=== PATIENT | male | born 1965 | race Caucasian/White ===

== ENCOUNTER 2017-04-19 21:46 | Emergency (ER) | payer MEDICARE ==
[~2017-04-19] VITALS: Ht 182.9 cm; Wt 70.0 kg
[2017-04-19 22:02] VITALS: BP 109/63; PULSE 74; RESP 16; TEMP 98.2; O2SAT 99
[2017-04-20] MEDS ORDERED: SODIUM CHLORIDE 0.9% FLUSH 10 ML FLUSH IV FLUSH PRN (00:15)
[2017-04-20 00:34] VITALS: O2SAT 100
[2017-04-20 00:35] VITALS: BP 160/65; PULSE 60; RESP 18; O2SAT 100
[2017-04-20 00:37] LABS: AUTOMATED NEUTROPHIL # 6.6 TH/MM3 (1.8-7.7); BASOPHIL # 0.1 TH/MM3 (0-0.2); BASOPHIL % 0.8 % (0.0-2.0); EOSINOPHIL # 0.3 TH/MM3 (0-0.4); EOSINOPHIL % 3.3 % (0.0-4.0); HEMATOCRIT 40.7 % (39.0-51.0); HEMOGLOBIN 14.6 GM/DL (13.0-17.0); LYMPH % 18.6 % (9.0-44.0); LYMPHOCYTE # 1.7 TH/MM3 (1.0-4.8); MEAN CELL VOLUME 89.1 FL (80.0-100.0); MEAN CORPUSCULAR HGB CONC 35.9 % (32.0-36.0); MEAN PLATELET VOLUME 8.1 FL (7.0-11.0); MONO % 4.8 % (0.0-8.0); MONOCYTE # 0.4 TH/MM3 (0-0.9); NEUT % 72.5 % (16.0-70.0); PLATELET COUNT 257 TH/MM3 (150-450); RED BLOOD COUNT 4.57 MIL/MM3 (4.50-5.90); RED CELL DISTRIBUTION WIDTH 13.1 % (11.6-17.2); WHITE BLOOD COUNT 9.1 TH/MM3 (4.0-11.0)
--- NOTE | 2017-04-20 00:39 | RADRPT ---
EXAM DATE/TIME: 04/20/2017 00:25 [facility] COMPARISON: No previous studies available for comparison. INDICATIONS : Short of breath. MEDICAL HISTORY : None. SURGICAL HISTORY : None. ENCOUNTER: Initial ACUITY: 1 day PAIN SCORE: 0/10 LOCATION: Bilateral chest FINDINGS: Portable AP views of the chest demonstrate a normal-sized cardiac silhouette. No pleural effusion, ai rspace consolidation, or pneumothorax is identified. There is asymmetric pleural-parenchymal opacity at the lung apices, right greater than left. The bones and soft tissues demonstrate no acute finding. CONCLUSION: No acute cardiopulmonary abnormality is identified. Mild asymmetric pleural parenchymal opacities yadira g apices most likely represents asymmetric scar. Suggest correlating with any prior imaging studies t o confirm stability. Kulwinder Ram MD on April 20, 2017 at 0:36 Board Certified Radiologist. This report was verified electronically.
[2017-04-20 00:40] LABS: AMORPHOUS SEDIMENT, URINE RARE; BILIRUBIN, URINE NEG (NEG); BLOOD, URINE NEG (NEG); CALCIUM OXALATE CRYSTALS,URINE MANY /hpf; GLUCOSE,URINE NEG (NEG); KETONE, URINE NEG (NEG); MUCUS URINE FEW /lpf (OCC); NITRITE,URINE NEG (NEG); URINE COLOR YELLOW (YELLW/STRAW); URINE LEUKOCYTE ESTERASE TRACE (NEG)
[2017-04-20 00:53] LABS: ALBUMIN 3.6 GM/DL (3.4-5.0); ALT (GPT) 13 U/L (12-78); AST (GOT) 8 U/L (15-37); BICARBONATE 32.9 MEQ/L (21.0-32.0); BLOOD UREA NITROGEN 11 MG/DL (7-18); CALCIUM 8.4 MG/DL (8.5-10.1); CHLORIDE 106 MEQ/L (98-107); CREATININE 0.96 MG/DL (0.60-1.30); GLOMERULAR FILTRATION RATE 82 ML/MIN (>89); GLUCOSE,RANDOM 107 MG/DL (74-106); SODIUM (NA) 144 MEQ/L (136-145)
[2017-04-20 01:03] LABS: ACETAMINOPHEN LESS THAN 2.0 MCG/ML (10.0-30.0); ALKALINE PHOSPHATASE 112 U/L (45-117); TOTAL BILIRUBIN ADULT 0.2 MG/DL (0.2-1.0); TOTAL PROTEIN 6.5 GM/DL (6.4-8.2); TROPONIN I LESS THAN 0.02 NG/ML (0.02-0.05)
--- NOTE | 2017-04-20 05:11 | RADRPT ---
EXAM DATE/TIME: 04/20/2017 04:57 [facility] COMPARISON: No previous studies available for comparison. INDICATIONS : Altered mental status. RADIATION DOSE: 56.35 CTDIvol (mGy) MEDICAL HISTORY : Alzheimer's Multiple sclerosis. SURGICAL HISTORY : None. ENCOUNTER: Initial ACUITY: 1 day PAIN SCALE: 0/10 LOCATION: cranial TECHNIQUE: Multiple contiguous axial images were obtained of the head. Using automated exposure control and adj ustment of the mA and/or kV according to patient size, radiation dose was kept as low as reasonably a chievable to obtain optimal diagnostic quality images. DICOM format image data is available electro nically for review and comparison. FINDINGS: CEREBRUM: The ventricles are normal. No evidence of midline shift, mass lesion, hemorrhage or acute infarction . No extra-axial fluid collections are seen. POSTERIOR FOSSA: The cerebellum and brainstem are intact. The 4th ventricle is midline. The cerebellopontine angle i s unremarkable. EXTRACRANIAL: Visualized sinuses are clear. SKULL: The calvaria is intact. No evidence of skull fracture. CONCLUSION: No acute intracranial abnormality is identified. Kulwinder Ram MD on April 20, 2017 at 5:09 Board Certified Radiologist. This report was verified electronically.
[2017-04-20 06:11] VITALS: BP 157/62; PULSE 87; RESP 18; O2SAT 100
--- NOTE | 2017-04-20 07:16 | PD ---
HPI . complaint Chief Complaint: Complaint Time Seen by Provider: 00:08 Travel History International Travel<30 days: No Contact w/Intl Traveler<30days: No Traveled to known affect area: No History of Present Illness HPI 51-year-old male brought in by ambulance, unclear who called the ambulance, patient is unclear why he is here. Patient states he was brought in from his prior residence, however ambulance run sheet notes [facility]. Patient has complaint of dark urine. Patient cannot give his own history, where he is from, or whom he lives with. [facility] Past Medical History Narrative Medical Past medical history reviewed. Possibility of Alzheimer's disease Alzheimer's Disease: Yes (unconfirmed, but family told EMS about this DX) Diminished Hearing: No Musculoskeletal: Yes (MS) Tetanus Vaccination: < 5 Years Influenza Vaccination: No Past Surgical History Surgical History: No Previous Surgery Social History Alcohol Use: No Tobacco Use: Yes Substance Use: No Allergies-Medications (Allergen,Severity, Reaction): Coded Allergies: No Allergy Information Available (Unverified , 04/19/17) pt states not allergic to any medication but due to cognition and no family at bedside unclear if pt knows if he may have an allergy at this time. Reported Meds & Prescriptions Reported Meds & Active Scripts Active Active Prescriptions or Reported Medications Unobtainable Narrative Medication Allergies and medications unable to verify Review of Systems ROS Limitations: Altered Mental Status, Poor Historian Physical Exam Exam Limitations: Poor Historian Narrative GENERAL: Awake and alert, pleasant, confused. Oriented to person only. Vital signs otherwise normal and stable SKIN: Warm and dry. Color is normal no diaphoresis cyanosis or pallor HEAD: Atraumatic. Normocephalic. EYES: Pupils equal and round. No scleral icterus. No injection or drainage. ENT: No nasal bleeding or discharge. Mucous membranes pink and moist. NECK: Trachea midline. No JVD. Supple full range of motion CARDIOVASCULAR: Regular rate and rhythm. S1-S2 no murmurs or gallops RESPIRATORY: No accessory muscle use. Clear to auscultation. Breath sounds equal bilaterally. GASTROINTESTINAL: Abdomen soft, non-tender, nondistended. Hepatic and splenic margins not palpable. No CVA tenderness MUSCULOSKELETAL: Extremities without clubbing, cyanosis, or edema. No obvious deformities. NEUROLOGICAL: Awake and alert. No obvious focal deficits. PSYCHIATRIC: Pleasant but confused, confabulating Data Data Last Documented VS Vital Signs Date Time Temp Pulse Resp B/P (MAP) Pulse Ox O2 Delivery O2 Flow Rate FiO2 04/20/17 06:11 87 18 157/62 (93) 100 04/20/17 00:34 Room Air 04/19/17 22:02 98.2 Orders Orders Electrocardiogram (04/20/17 00:15) Ammonia (04/20/17 00:15) Complete Blood Count With Diff (04/20/17 00:15) Comprehensive Metabolic Panel (04/20/17 00:15) Creatine Kinase (Cpk) (04/20/17 00:15) Troponin I (04/20/17 00:15) Thyroid Stimulating Hormone (04/20/17 00:15) Urinalysis - C+S If Indicated (04/20/17 00:15) Chest, Single Ap (04/20/17 00:15) Blood Glucose (04/20/17 00:15) Ecg Monitoring (04/20/17 00:15) Iv Access Insert/Monitor (04/20/17 00:15) Oximetry (04/20/17 00:15) Sodium Chloride 0.9% Flush (Ns Flush) (04/20/17 00:15) Drug Screen, Random Urine (04/20/17 00:15) Alcohol (Ethanol) (04/20/17 00:15) Tylenol (Acetaminophen) (04/20/17 00:15) Salicylates (Aspirin) (04/20/17 00:15) Creatine Kinase (Cpk) (04/20/17 04:31) Ct Brain W/O Iv Contrast(Rout) (04/20/17 ) Labs Laboratory Tests Test 04/20/17 00:26 04/20/17 04:42 White Blood Count 9.1 TH/MM3 Red Blood Count 4.57 MIL/MM3 Hemoglobin 14.6 GM/DL Hematocrit 40.7 % Mean Corpuscular Volume 89.1 FL Mean Corpuscular Hemoglobin 32.0 PG Mean Corpuscular Hemoglobin Concent 35.9 % Red Cell Distribution Width 13.1 % Platelet Count 257 TH/MM3 Mean Platelet Volume 8.1 FL Neutrophils (%) (Auto) 72.5 % Lymphocytes (%) (Auto) 18.6 % Monocytes (%) (Auto) 4.8 % Eosinophils (%) (Auto) 3.3 % Basophils (%) (Auto) 0.8 % Neutrophils # (Auto) 6.6 TH/MM3 Lymphocytes # (Auto) 1.7 TH/MM3 Monocytes # (Auto) 0.4 TH/MM3 Eosinophils # (Auto) 0.3 TH/MM3 Basophils # (Auto) 0.1 TH/MM3 CBC Comment DIFF FINAL Differential Comment Urine Color YELLOW Urine Turbidity HAZY Urine pH 6.0 Urine Specific [place] 1.028 Urine Protein 30 mg/dL Urine Glucose (UA) NEG mg/dL Urine Ketones NEG mg/dL Urine Occult Blood NEG Urine Nitrite NEG Urine Bilirubin NEG Urine Urobilinogen 4.0 MG/DL Urine Leukocyte Esterase TRACE Urine RBC 2 /hpf Urine WBC 1 /hpf Urine Calcium Oxalate Crystals MANY /hpf Urine Amorphous Sediment RARE Urine Mucus FEW /lpf Microscopic Urinalysis Comment CATH-CULT NOT IND Blood Urea Nitrogen 11 MG/DL Creatinine 0.96 MG/DL Random Glucose 107 MG/DL Total Protein 6.5 GM/DL Albumin 3.6 GM/DL Calcium Level 8.4 MG/DL Alkaline Phosphatase 112 U/L Aspartate Amino Transf (AST/SGOT) 8 U/L Alanine Aminotransferase (ALT/SGPT) 13 U/L Total Bilirubin 0.2 MG/DL Sodium Level 144 MEQ/L Potassium Level 3.6 MEQ/L Chloride Level 106 MEQ/L Carbon Dioxide Level 32.9 MEQ/L Anion Gap 5 MEQ/L Estimat Glomerular Filtration Rate 82 ML/MIN Ammonia 25 MCMOL/L Total Creatine Kinase 109 U/L 90 U/L Troponin I LESS THAN 0.02 NG/ML Thyroid Stimulating Hormone 3rd Gen 1.610 uIU/ML Salicylates Level 4.7 MG/DL Urine Opiates Screen NEG Acetaminophen Level LESS THAN 2.0 MCG/ML Urine Barbiturates Screen NEG Urine Amphetamines Screen NEG Urine Benzodiazepines Screen NEG Urine Cocaine Screen NEG Urine Cannabinoids Screen POS Ethyl Alcohol Level LESS THAN 3 MG/DL MDM Medical Decision Making Medical Screen Exam Complete: Yes Emergency Medical Condition: Yes Medical Record Reviewed: Yes Differential Diagnosis Altered mental status, dementia, urobilinogen Narrative Course Patient's laboratory examinations reviewed, no significant abnormalities. Awaiting return phone call from patient's family members. Son was contacted in the morning, resides in [place], was concerned about patient's domicile and ability to care for himself. Patient discussed with case management. Patient to be admitted observation status pending evaluation for placement Diagnosis Primary Impression: Acute on chronic alteration in mental status Admitting Information Admitting Physician Requests: Observation Scripts Unable to Obtain Active Prescriptions or Reported Meds Tom Teran MD Apr 20, 2017 07:16
--- NOTE | 2017-04-20 14:33 | EKG ---
Date Performed: 04/20/2017 Time Performed: 00:42:27 PTAGE: 51 years EKG: SINUS BRADYCARDIA INCOMPLETE RIGHT BUNDLE BRANCH BLOCK BORDERLINE ECG NO PREVIOUS TRACING DOCTOR: Carlos Paez Interpretating Date/Time 04/20/2017 14:29:58
== END 2017-04-20 08:41 | disposition home or self-care (01) ==
LOC: NEPC 21:46
DX: R41.82 Altered mental status, unspecified (principal); R00.1 Bradycardia, unspecified; G35 Multiple sclerosis; Z72.0 Tobacco use
CPT/HCPCS: 70450; 71045; 80053; 80307; 81001; 82140; 82550; 84443; 84484; 85025; 93005

== ENCOUNTER 2017-04-29 06:39 | Observation (INO) | payer MEDICARE, MEDICAID ==
[~2017-04-29] VITALS: Ht 182.9 cm; Wt 60.3 kg
[2017-04-29] VITALS (10 sets, daily range): BP systolic 117–129; BP diastolic 65–83; PULSE 82–94; RESP 16–18; TEMP 98.7–99; O2SAT 96–100
[2017-04-29] MEDS ORDERED: SODIUM CHLORIDE 0.9% FLUSH 10 ML FLUSH IV FLUSH PRN ×2 (07:30→10:30)
--- NOTE | 2017-04-29 08:06 | RADRPT ---
EXAM DATE/TIME: 04/29/2017 07:49 [facility] COMPARISON: CT BRAIN W/O CONTRAST, April 20, 2017, 4:57. INDICATIONS : Found on floor, altered mental status. RADIATION DOSE: 56.35 CTDIvol (mGy) MEDICAL HISTORY : Alzheimer's Multiple sclerosis. SURGICAL HISTORY : None. ENCOUNTER: Initial ACUITY: 1 day PAIN SCALE: 0/10 LOCATION: cranial TECHNIQUE: Multiple contiguous axial images were obtained of the head. Using automated exposure control and adj ustment of the mA and/or kV according to patient size, radiation dose was kept as low as reasonably a chievable to obtain optimal diagnostic quality images. DICOM format image data is available electro nically for review and comparison. FINDINGS: CEREBRUM: The ventricles are normal for age. No evidence of midline shift, mass lesion, hemorrhage or acute in farction. No extra-axial fluid collections are seen. POSTERIOR FOSSA: The cerebellum and brainstem are intact. The 4th ventricle is midline. The cerebellopontine angle i s unremarkable. EXTRACRANIAL: The visualized portion of the orbits is intact. SKULL: The calvaria is intact. No evidence of skull fracture. CONCLUSION: 1. No acute intracranial abnormality. Branden Linares MD on April 29, 2017 at 8:03 Board Certified Radiologist. This report was verified electronically.
[2017-04-29 08:17] LABS: AUTOMATED NEUTROPHIL # 4.6 TH/MM3 (1.8-7.7); BASOPHIL % 0.3 % (0.0-2.0); EOSINOPHIL % 0.1 % (0.0-4.0); HEMATOCRIT 41.8 % (39.0-51.0); HEMOGLOBIN 14.7 GM/DL (13.0-17.0); LYMPH % 4.7 % (9.0-44.0); LYMPHOCYTE # 0.3 TH/MM3 (1.0-4.8); MEAN CELL VOLUME 89.9 FL (80.0-100.0); MEAN CORPUSCULAR HEMOGLOBIN 31.7 PG (27.0-34.0); MEAN CORPUSCULAR HGB CONC 35.2 % (32.0-36.0); MEAN PLATELET VOLUME 8.6 FL (7.0-11.0); MONO % 6.9 % (0.0-8.0); MONOCYTE # 0.4 TH/MM3 (0-0.9); PLATELET COUNT 148 TH/MM3 (150-450); RED BLOOD COUNT 4.65 MIL/MM3 (4.50-5.90); RED CELL DISTRIBUTION WIDTH 13.2 % (11.6-17.2); WHITE BLOOD COUNT 5.3 TH/MM3 (4.0-11.0)
[2017-04-29 08:36] LABS: ALBUMIN 3.7 GM/DL (3.4-5.0); ALT (GPT) 22 U/L (12-78); AST (GOT) 25 U/L (15-37); BLOOD UREA NITROGEN 10 MG/DL (7-18); CALCIUM 8.4 MG/DL (8.5-10.1); CHLORIDE 105 MEQ/L (98-107); CREATININE 0.87 MG/DL (0.60-1.30); GLOMERULAR FILTRATION RATE 92 ML/MIN (>89); GLUCOSE,RANDOM 109 MG/DL (74-106); SODIUM (NA) 137 MEQ/L (136-145)
[2017-04-29 08:39] LABS: ALKALINE PHOSPHATASE 119 U/L (45-117); TOTAL BILIRUBIN ADULT 0.3 MG/DL (0.2-1.0); TOTAL PROTEIN 6.9 GM/DL (6.4-8.2)
--- NOTE | 2017-04-29 09:56 | PD ---
HPI Chief Complaint: Fall Time Seen by Provider: 07:10 Travel History International Travel<30 days: No Contact w/Intl Traveler<30days: No Traveled to known affect area: No History of Present Illness HPI 51 yo male arrives by EMS. EMS provides a history that includes patient found sitting on the floor. The patient states he cannot remember anything including why he is here or how he got here however he does report a history of MS and inability to walk. He has no pain or fever. No chest pain shortness of breath nausea or vomiting reported. The patient was seen here about 10 days ago with a similar history. The patient evidently moved here from [place] in the past month or so. He states he did this because he has MS and that warmer climate is preferable. PFSH Past Medical History Alzheimer's Disease: Yes (unconfirmed, but family told EMS about this DX) Diminished Hearing: No Musculoskeletal: Yes (MS) Tetanus Vaccination: < 5 Years Influenza Vaccination: No Past Surgical History Surgical History: Unable to Obtain Social History Alcohol Use: No Tobacco Use: Yes (6 cigarettes) Substance Use: No Allergies-Medications (Allergen,Severity, Reaction): Coded Allergies: No Allergy Information Available (Unverified , 04/19/17) pt states not allergic to any medication but due to cognition and no family at bedside unclear if pt knows if he may have an allergy at this time. Reported Meds & Prescriptions Reported Meds & Active Scripts Active Active Prescriptions or Reported Medications Unobtainable Review of Systems ROS Limitations: Poor Historian Physical Exam Narrative GENERAL: 51-year-old male sitting upright in bed no obvious distress, patient has urinated upon himself and his clothes Vital Signs Date Time Temp Pulse Resp B/P (MAP) Pulse Ox O2 Delivery O2 Flow Rate FiO2 04/29/17 09:13 84 17 125/80 (95) 100 Room Air 04/29/17 08:13 98 Room Air 04/29/17 06:44 98.7 82 16 127/78 (94) 99 SKIN: Warm and dry. HEAD: Atraumatic. Normocephalic. EYES: Pupils equal and round. No scleral icterus. No injection or drainage. ENT: No nasal bleeding or discharge. Mucous membranes pink and moist. NECK: Trachea midline. No JVD. CARDIOVASCULAR: Regular rate and rhythm. RESPIRATORY: No accessory muscle use. Clear to auscultation. Breath sounds equal bilaterally. GASTROINTESTINAL: Abdomen soft, non-tender, nondistended. Hepatic and splenic margins not palpable. MUSCULOSKELETAL: Atrophy of the hips and lower leg muscles. No gross deformity otherwise. NEUROLOGICAL: Patient is awake and alert. He speaking full sentences. There is no focal cranial nerve deficit. There is some atrophy of the bilateral lower extremities. Memory is reported to be impaired PSYCHIATRIC: Patient has been uncooperative and belligerent with staff. Refuses catheterization for urine and refuses to provide a urine. Data Data Last Documented VS Vital Signs Date Time Temp Pulse Resp B/P (MAP) Pulse Ox O2 Delivery O2 Flow Rate FiO2 04/29/17 09:13 84 17 125/80 (95) 100 Room Air 04/29/17 06:44 98.7 Orders Orders Complete Blood Count With Diff (04/29/17 07:29) Comprehensive Metabolic Panel (04/29/17 07:29) Urinalysis - C+S If Indicated (04/29/17 07:29) Ct Brain W/O Iv Contrast(Rout) (04/29/17 07:29) Ecg Monitoring (04/29/17 07:29) Iv Access Insert/Monitor (04/29/17 07:29) Cath For Specimen (04/29/17 07:29) Oximetry (04/29/17 07:29) Sodium Chloride 0.9% Flush (Ns Flush) (04/29/17 07:30) Drug Screen, Random Urine (04/29/17 07:29) Alcohol (Ethanol) (04/29/17 07:29) Urine Culture (04/29/17 09:30) Admit Order (Ed Use Only) (04/29/17 ) Vital Signs (Adult) Q4H (04/29/17 10:23) Diet Heart Healthy (04/29/17 Lunch) Notify Dr: Other (04/29/17 10:23) Labs Laboratory Tests Test 04/29/17 07:40 04/29/17 09:30 White Blood Count 5.3 TH/MM3 Red Blood Count 4.65 MIL/MM3 Hemoglobin 14.7 GM/DL Hematocrit 41.8 % Mean Corpuscular Volume 89.9 FL Mean Corpuscular Hemoglobin 31.7 PG Mean Corpuscular Hemoglobin Concent 35.2 % Red Cell Distribution Width 13.2 % Platelet Count 148 TH/MM3 Mean Platelet Volume 8.6 FL Neutrophils (%) (Auto) 88.0 % Lymphocytes (%) (Auto) 4.7 % Monocytes (%) (Auto) 6.9 % Eosinophils (%) (Auto) 0.1 % Basophils (%) (Auto) 0.3 % Neutrophils # (Auto) 4.6 TH/MM3 Lymphocytes # (Auto) 0.3 TH/MM3 Monocytes # (Auto) 0.4 TH/MM3 Eosinophils # (Auto) 0.0 TH/MM3 Basophils # (Auto) 0.0 TH/MM3 CBC Comment DIFF FINAL Differential Comment Blood Urea Nitrogen 10 MG/DL Creatinine 0.87 MG/DL Random Glucose 109 MG/DL Total Protein 6.9 GM/DL Albumin 3.7 GM/DL Calcium Level 8.4 MG/DL Alkaline Phosphatase 119 U/L Aspartate Amino Transf (AST/SGOT) 25 U/L Alanine Aminotransferase (ALT/SGPT) 22 U/L Total Bilirubin 0.3 MG/DL Sodium Level 137 MEQ/L Potassium Level 4.2 MEQ/L Chloride Level 105 MEQ/L Carbon Dioxide Level 27.0 MEQ/L Anion Gap 5 MEQ/L Estimat Glomerular Filtration Rate 92 ML/MIN Ethyl Alcohol Level LESS THAN 3 MG/DL Urine Color YELLOW Urine Turbidity CLEAR Urine pH 6.5 Urine Specific [place] 1.029 Urine Protein 30 mg/dL Urine Glucose (UA) NEG mg/dL Urine Ketones 40 mg/dL Urine Occult Blood NEG Urine Nitrite NEG Urine Bilirubin NEG Urine Urobilinogen LESS THAN 2.0 MG/DL Urine Leukocyte Esterase NEG Urine RBC 6 /hpf Urine WBC 1 /hpf Urine Squamous Epithelial Cells <1 /hpf Urine Bacteria RARE /hpf Urine Mucus FEW /lpf Microscopic Urinalysis Comment CATH-CULTURE IND Urine Opiates Screen NEG Urine Barbiturates Screen NEG Urine Amphetamines Screen NEG Urine Benzodiazepines Screen NEG Urine Cocaine Screen NEG Urine Cannabinoids Screen POS MDM Medical Decision Making Medical Screen Exam Complete: Yes Emergency Medical Condition: Yes Medical Record Reviewed: Yes Differential Diagnosis MS exacerbation, stroke, transient global amnesia, malingering, polysubstance abuse, alcoholism Narrative Course CBC & BMP Diagram 04/29/17 07:40 Total Protein 6.9, Albumin 3.7, Calcium Level 8.4 L, Alkaline Phosphatase 119 H , Aspartate Amino Transf (AST/SGOT) 25, Alanine Aminotransferase (ALT/SGPT) 22, Total Bilirubin 0.[address] 04/29/17 0729 Signed Impressions: Service Date/Time: April 07:49 - CONCLUSION: 1. No acute intracranial abnormality. Branden Linares MD The workup is essentially unremarkable. Urine drug screen may reveal an abnormality. There is some concern for potential malingering or secondary gain. Patient evidently has housing right now. case management met with the patient and confirmed placement would not be complicated. Situation is further complicated by the patient's apparent status as a poor historian. Urine drug screen came back positive for marijuana which may worsen memory loss. Diagnosis Primary Impression: Fall Qualified Codes: W19.XXXA - Unspecified fall, initial encounter Additional Impression: Memory loss of unknown cause Admitting Information Admitting Physician Requests: Observation Scripts Unable to Obtain Active Prescriptions or Reported Meds Chucho Marroquin MD Apr 29, 2017 09:56
[2017-04-29 09:59] LABS: BACTERIA, URINE RARE /hpf; BILIRUBIN, URINE NEG (NEG); BLOOD, URINE NEG (NEG); GLUCOSE,URINE NEG (NEG); KETONE, URINE 40 mg/dL (NEG); MUCUS URINE FEW /lpf (OCC); NITRITE,URINE NEG (NEG); PH, URINE 6.5 (5.0-8.5); SQUAMOUS EPITHELIAL CELL URINE <1 /hpf (0-5); URINE COLOR YELLOW (YELLW/STRAW); URINE LEUKOCYTE ESTERASE NEG (NEG)
[2017-04-29] MEDS ORDERED: BISACODYL 10 MG SUPP RECTAL PRN (10:30)
[2017-04-29] MEDS ORDERED: LACTULOSE SYRUP 20 GM/30 ML CUP PO PRN (10:30)
[2017-04-29] MEDS ORDERED: NALOXONE HCL 0.4 MG/ML AMP IV PUSH PRN (10:30)
[2017-04-29] MEDS ORDERED: SENNOSIDES 8.6 MG TAB PO PRN (10:30)
[2017-04-29] MEDS ORDERED: ONDANSETRON HCL 4 MG/2 ML VIAL IVP PRN (10:30)
[2017-04-29] MEDS ORDERED: MAGNESIUM HYDROXIDE SUSP 30 ML CUP PO PRN (10:30)
[2017-04-29] MEDS: SODIUM CHLOR 0.9% 1000 ML INJ 1,000 ML IV SCH ×2 (11:13→20:26)
[2017-04-29] MEDS: ENOXAPARIN SODIUM 40 MG/0.4 ML SYRINGE SQ SCH (11:13)
--- NOTE | 2017-04-29 12:41 | PD.PN.STU ---
Subjective Remarks The patient is a 51 year-old man brought in by EMS, with unknown housing, , unemployed, supported by [facility], with a son in the area and a history of MS diagnosed 20-30 years ago, no previous psychiatric history, no history of psychiatric hospitalizations, denies SI/HI. EMS provides a history that includes patient found sitting on the floor. The patient states he cannot remember anything including why he is here or how he got here however he does report a history of MS and inability to walk. He has no pain or fever. No chest pain shortness of breath nausea or vomiting reported. The patient was seen here about 10 days ago with a similar history. The patient evidently moved here from [place] in the past month or so. He states he did this because he has MS and that warmer climate is preferable. with a fragmented social and medical history, Patient is oriented to self and location, and time with coaching. Patient states that "I can't remember anything" repeatedly throughout the interview. He states that his MS is the cause of his memory loss. He denies any medical conditions. Denies taking any medications. Denies drug use, stating "I quit smoking pot". Denies alcohol use. Pt states he smokes 3-4 cigarettes per day. Pt states his son Billy lives in the area. Pt denies history of SI/HI and denies SI/HI today. Objective Vitals Vital Signs Date Time Temp Pulse Resp B/P (MAP) Pulse Ox O2 Delivery O2 Flow Rate FiO2 04/29/17 12:14 84 17 127/81 (96) 98 Room Air 04/29/17 11:25 98 21 04/29/17 11:14 87 16 129/83 (98) 98 Room Air 04/29/17 09:13 84 17 125/80 (95) 100 Room Air 04/29/17 08:13 98 Room Air 04/29/17 06:44 98.7 82 16 127/78 (94) 99 Result Diagram: 04/29/17 0740 04/29/17 0740 Han Carranza M3 Apr 29, 2017 12:41
--- NOTE | 2017-04-29 13:17 | PD.PSY.CON ---
Provisional Diagnosis Admission Date Apr 29, 2017 at 10:24 [place] I. Major Neurocognitive disorder secondary to MS vs major neurocognitive disorder Alzheimer type [place] II. Deferred [place] III. MS History of Present Illness Service Psychiatry Consult Requested By ER team Reason for Consult Neurocognitive disorders versus malingering Primary Care Physician Unknown HPI The patient is a 51 year-old man, homeless, unemployed, , supported by [facility], brought in by EMS, with a son in the area and a history of MS diagnosed 20-30 years ago, no previous psychiatric history, no history of psychiatric hospitalizations, denies SI/HI. EMS provides a history that includes patient found sitting on the floor. The patient states he cannot remember anything including why he is here or how he got here however he does report a history of MS and inability to walk. He has no pain or fever. No chest pain shortness of breath nausea or vomiting reported. The patient was seen here about 10 days ago with a similar history. The patient evidently moved here from [place] in the past month or so. He states he did this because he has MS and that warmer climate is preferable. with a fragmented social and medical history, Patient is oriented to self and location, and time with coaching. Patient states that "I can't remember anything" repeatedly throughout the interview. He states that his MS is the cause of his memory loss. He denies any medical conditions. Denies taking any medications. Denies drug use, stating "I quit smoking pot". Denies alcohol use. Pt states he smokes 3-4 cigarettes per day. Pt states his son Billy lives in the area. Pt denies history of SI/HI and denies SI/HI today. Review of Systems Constitutional: DENIES: Diaphoretic episodes, Fatigue, Fever, Weight gain, Weight loss, Chills, Dizziness, Change in appetite, Night Sweats Endocrine: DENIES: Heat/cold intolerance, Polydipsia, Polyuria, Polyphagia Eyes: DENIES: Blurred vision, Diplopia, Eye inflammation, Eye pain, Vision loss , Photosensitivity, Double Vision Ears, nose, mouth, throat: DENIES: Tinnitus, Hearing loss, Vertigo, Nasal discharge, Oral lesions, Throat pain, Hoarseness, Ear Pain, Running Nose, Epistaxis, Sinus Pain, Toothache, Odynophagia Respiratory: DENIES: Apneas, Cough, Snoring, Wheezing, Hemoptysis, Sputum production, Shortness of breath Cardiovascular: DENIES: Chest pain, Palpitations, Syncope, Dyspnea on Exertion , PND, Lower Extremity Edema, Orthopnea, Claudication Gastrointestinal: DENIES: Abdominal pain, Black stools, Bloody stools, Constipation, Diarrhea, Nausea, Vomiting, Difficulty Swallowing, Anorexia Genitourinary: DENIES: Sexual dysfunction, Urinary frequency, Urinary incontinence, Urgency, Hematuria, Dysuria, Nocturia, Penile Discharge, Testicular Pain, Testicular Swelling Musculoskeletal: DENIES: Joint pain, Muscle aches, Stiffness, Joint Swelling, Back pain, Neck pain Integumentary: DENIES: Abnormal pigmentation, Nail changes, Pruritus, Rash Hematologic/lymphatic: DENIES: Bruising, Lymphadenopathy Immunologic/allergic: DENIES: Eczema, Urticaria Neurologic: DENIES: Abnormal gait, Headache, Localized weakness, Paresthesias, Seizures, Speech Problems, Tremor, Poor Balance Psychiatric: COMPLAINS OF: Confusion, DENIES: Anxiety, Mood changes, Depression , Hallucinations, Agitation, Suicidal Ideation, Homicidal Ideation, Delusions Past Family Social History Coded Allergies: No Allergy Information Available (Unverified , 04/29/17) pt states not allergic to any medication but due to cognition and no family at bedside unclear if pt knows if he may have an allergy at this time. Unable to Obtain Active Prescriptions or Reported Meds Current Medications Medications (Trade) Dose Ordered Sig/Mike Route Start Time Stop Time Status Last Admin Sodium Chloride 1,000 ml @ 100 mls/hr Q10H IV 04/29/17 10:26 04/29/17 11:13 (NS Flush) 2 ml UNSCH PRN IV FLUSH 04/29/17 10:30 (NS Flush) 2 ml BID IV FLUSH 04/29/17 21:00 (Tylenol) 650 mg Q4H PRN PO 04/29/17 10:30 (Zofran Inj) 4 mg Q6H PRN IVP 04/29/17 10:30 (Lovenox Inj) 40 mg Q24H SQ 04/29/17 11:00 04/29/17 11:13 (Narcan Inj) 0.4 mg UNSCH PRN IV PUSH 04/29/17 10:30 (Sis-Colace) 1 tab BID PO 04/29/17 21:00 (Milk Of Magnesia Liq) 30 ml Q12H PRN PO 04/29/17 10:30 (Senokot) 17.2 mg Q12H PRN PO 04/29/17 10:30 (Dulcolax Supp) 10 mg DAILY PRN RECTAL 04/29/17 10:30 (Lactulose Liq) 30 ml DAILY PRN PO 04/29/17 10:30 Family Psych History He denies family psychiatric history Social History Patient was born and raised in [place], he lives in the [facility], Physical Exam Vital Signs Vital Signs Date Time Temp Pulse Resp B/P (MAP) Pulse Ox O2 Delivery O2 Flow Rate FiO2 04/29/17 12:14 84 17 127/81 (96) 98 Room Air 04/29/17 11:25 21 04/29/17 06:44 98.7 Lab Results Test 04/29/17 07:40 04/29/17 09:30 White Blood Count 5.3 TH/MM3 Red Blood Count 4.65 MIL/MM3 Hemoglobin 14.7 GM/DL Hematocrit 41.8 % Mean Corpuscular Volume 89.9 FL Mean Corpuscular Hemoglobin 31.7 PG Mean Corpuscular Hemoglobin Concent 35.2 % Red Cell Distribution Width 13.2 % Platelet Count 148 TH/MM3 Mean Platelet Volume 8.6 FL Neutrophils (%) (Auto) 88.0 % Lymphocytes (%) (Auto) 4.7 % Monocytes (%) (Auto) 6.9 % Eosinophils (%) (Auto) 0.1 % Basophils (%) (Auto) 0.3 % Neutrophils # (Auto) 4.6 TH/MM3 Lymphocytes # (Auto) 0.3 TH/MM3 Monocytes # (Auto) 0.4 TH/MM3 Eosinophils # (Auto) 0.0 TH/MM3 Basophils # (Auto) 0.0 TH/MM3 CBC Comment DIFF FINAL Differential Comment Blood Urea Nitrogen 10 MG/DL Creatinine 0.87 MG/DL Random Glucose 109 MG/DL Total Protein 6.9 GM/DL Albumin 3.7 GM/DL Calcium Level 8.4 MG/DL Alkaline Phosphatase 119 U/L Aspartate Amino Transf (AST/SGOT) 25 U/L Alanine Aminotransferase (ALT/SGPT) 22 U/L Total Bilirubin 0.3 MG/DL Sodium Level 137 MEQ/L Potassium Level 4.2 MEQ/L Chloride Level 105 MEQ/L Carbon Dioxide Level 27.0 MEQ/L Anion Gap 5 MEQ/L Estimat Glomerular Filtration Rate 92 ML/MIN Ethyl Alcohol Level LESS THAN 3 MG/DL Urine Color YELLOW Urine Turbidity CLEAR Urine pH 6.5 Urine Specific [place] 1.029 Urine Protein 30 mg/dL Urine Glucose (UA) NEG mg/dL Urine Ketones 40 mg/dL Urine Occult Blood NEG Urine Nitrite NEG Urine Bilirubin NEG Urine Urobilinogen LESS THAN 2.0 MG/DL Urine Leukocyte Esterase NEG Urine RBC 6 /hpf Urine WBC 1 /hpf Urine Squamous Epithelial Cells <1 /hpf Urine Bacteria RARE /hpf Urine Mucus FEW /lpf Microscopic Urinalysis Comment CATH-CULTURE IND Urine Opiates Screen NEG Urine Barbiturates Screen NEG Urine Amphetamines Screen NEG Urine Benzodiazepines Screen NEG Urine Cocaine Screen NEG Urine Cannabinoids Screen POS Date/Time Source Procedure Growth Status 04/29/17 09:30 Urine Catheterized Urine Urine Culture Pending Received Mental Status Examination Appearance: Appropriate Consciousness: Alert Orientation: Person Motor Activity: Normal gait Speech: Unremarkable Language: Adequate Fund of Knowledge: Adequate, Inadequate Attention and Concentration: Adequate Memory: Impaired Mood: Appropriate Affect: Irritable Thought Process & Associations: Intact Thought Content: Appropriate Hallucination Type: None Delusion Type: None Suicidal Ideation: No Suicidal Plan: No Suicidal Intention: No Homicidal Ideation: No Homicidal Plan: No Homicidal Intention: No Insight: Fair Judgment: Impulsive Assessment & Plan Problem List: (1) Major neurocognitive disorder ICD Codes: F03.90 - Unspecified dementia without behavioral disturbance Assessment & Plan: On psychiatric evaluation today the patient presents symptoms and signs of memory deficit. Patient has a significant improvement in short term memory. The patient denies depressive symptoms, denies anxiety, denies ayuhs, denies psychosis. Patient has been intrusive in the ER, irritable , but no agitation or aggressive behavior reported. He denies suicidal and homicidal ideation, he denies visual and auditory hallucinations. Other than memory deficit, there is no any evidence of any acute neuropsychiatric symptoms that requires an immediate psychiatric attention at this moment. Conscious simulation of memory deficits is possible, but there is no clear secondary gain observed during this evaluation, more longitudinal observation will be necessary in order to confirm this diagnosis. I am not recommending any psychotropic at this moment. Neurology consult is highly recommended in order to rule out MS exacerbation. We'll follow-up. Assessment & Plan Estimated LOS: Marcus Anand MD Apr 29, 2017 13:17
--- NOTE | 2017-04-29 15:08 | HHI.HP ---
[facility] Physician Unknown Admission Diagnosis Memory Loss, Fall Diagnoses: Chief Complaint: altered mental status Travel History International Travel<30 Days: No Contact w/Intl Traveler <30 Da: No Traveled to Known Affected Are: No History of Present Illness 51 yo male with history of MS arrives by EMS to the emergency room for further evaluation.. EMS provides a history that includes patient found sitting on the floor. The patient states he cannot remember anything including why he is here or how he got here however he does report a history of MS and inability to walk. He is a poor historian and he gets angry when asked questions. He has no pain or fever. No chest pain shortness of breath nausea or vomiting reported. The patient was seen here about 10 days ago with a similar history. The patient evidently moved here from [place] in the past month or so. He states he did this because he has MS and that warmer climate is preferable. He denies any motor deficits. No change in vision. No urinary complaints. Review of Systems ROS Limitations: Poor Historian Except as stated in HPI: all other systems reviewed are Neg Past Family Social History Past Medical History History of MS Past Surgical History Patient since he had no surgeries in the past Reported Medications Reported Meds & Active Scripts Active Active Prescriptions or Reported Medications Unobtainable Allergies: Coded Allergies: No Allergy Information Available (Unverified , 04/29/17) pt states not allergic to any medication but due to cognition and no family at bedside unclear if pt knows if he may have an allergy at this time. Family History Says no h/o of MS in his family. Says his family is healthy. Social History Current smoking half a pack a day every other day since young age. Quit alcohol use 15 years ago. No illicit drug use. Physical Exam Vital Signs Vital Signs Date Time Temp Pulse Resp B/P (MAP) Pulse Ox O2 Delivery O2 Flow Rate FiO2 04/29/17 14:01 98.8 82 18 123/76 (92) 100 04/29/17 13:30 86 16 124/78 (93) 97 04/29/17 12:14 84 17 127/81 (96) 98 Room Air 2/15/18 11:25 98 21 04/29/17 11:14 87 16 129/83 (98) 98 Room Air 04/29/17 09:13 84 17 125/80 (95) 100 Room Air 04/29/17 08:13 98 Room Air 04/29/17 06:44 98.7 82 16 127/78 (94) 99 Physical Exam GENERAL: This is a frail male, disheveled, well-nourished, well-developed patient, in no apparent distress. SKIN: No rashes, ecchymoses or lesions. Cool and dry. HEAD: Atraumatic. Normocephalic. No temporal or scalp tenderness. EYES: Pupils equal round and reactive. Extraocular motions intact. No scleral icterus. No injection or drainage. ENT: Nose without bleeding, purulent drainage or septal hematoma. Throat without erythema, tonsillar hypertrophy or exudate. Uvula midline. Airway patent. NECK: Trachea midline. No JVD or lymphadenopathy. Supple, nontender, no meningeal signs. CARDIOVASCULAR: Regular rate and rhythm without murmurs, gallops, or rubs. RESPIRATORY: Clear to auscultation. Breath sounds equal bilaterally. No wheezes , rales, or rhonchi. GASTROINTESTINAL: Abdomen soft, non-tender, nondistended. No hepato-splenomegaly , or palpable masses. No guarding. MUSCULOSKELETAL: Extremities without clubbing, cyanosis, or edema. No joint tenderness, effusion, or edema noted. No calf tenderness. Negative Homans sign bilaterally. NEUROLOGICAL: Awake and alert. Knows his name and his date of , knows he is in the hospital and knows the name of the computer information science professor. Cranial nerves grossly intact except patient right eye motor and sensory grossly within normal limits. Some weakness on the right side right arm or right leg, the patient says he is [id number]. Normal speech. Laboratory Laboratory Tests Test 04/29/17 07:40 04/29/17 09:30 White Blood Count 5.3 Red Blood Count 4.65 Hemoglobin 14.7 Hematocrit 41.8 Mean Corpuscular Volume 89.9 Mean Corpuscular Hemoglobin 31.7 Mean Corpuscular Hemoglobin Concent 35.2 Red Cell Distribution Width 13.2 Platelet Count 148 Mean Platelet Volume 8.6 Neutrophils (%) (Auto) 88.0 Lymphocytes (%) (Auto) 4.7 Monocytes (%) (Auto) 6.9 Eosinophils (%) (Auto) 0.1 Basophils (%) (Auto) 0.3 Neutrophils # (Auto) 4.6 Lymphocytes # (Auto) 0.3 Monocytes # (Auto) 0.4 Eosinophils # (Auto) 0.0 Basophils # (Auto) 0.0 CBC Comment DIFF FINAL Differential Comment Blood Urea Nitrogen 10 Creatinine 0.87 Random Glucose 109 Total Protein 6.9 Albumin 3.7 Calcium Level 8.4 Alkaline Phosphatase 119 Aspartate Amino Transf (AST/SGOT) 25 Alanine Aminotransferase (ALT/SGPT) 22 Total Bilirubin 0.3 Sodium Level 137 Potassium Level 4.2 Chloride Level 105 Carbon Dioxide Level 27.0 Anion Gap 5 Estimat Glomerular Filtration Rate 92 Ethyl Alcohol Level LESS THAN 3 Urine Color YELLOW Urine Turbidity CLEAR Urine pH 6.5 Urine Specific [place] 1.029 Urine Protein 30 Urine Glucose (UA) NEG Urine Ketones 40 Urine Occult Blood NEG Urine Nitrite NEG Urine Bilirubin NEG Urine Urobilinogen LESS THAN 2.0 Urine Leukocyte Esterase NEG Urine RBC 6 Urine WBC 1 Urine Squamous Epithelial Cells <1 Urine Bacteria RARE Urine Mucus FEW Microscopic Urinalysis Comment CATH-CULTURE IND Urine Opiates Screen NEG Urine Barbiturates Screen NEG Urine Amphetamines Screen NEG Urine Benzodiazepines Screen NEG Urine Cocaine Screen NEG Urine Cannabinoids Screen POS Date/Time Source Procedure Growth Status 04/29/17 09:30 Urine Catheterized Urine Urine Culture Pending Received Result Diagram: 04/29/1740 04/29/17 0740 Imaging Last Impressions Head CT 04/29/17 0729 Signed Impressions: Service Date/Time: April 07:49 - CONCLUSION: 1. No acute intracranial abnormality. MD Randy Bartholomew VTE Risk Assessment Caprini VTE Risk Assessment: Mod/High Risk (score >= 2) Caprini Risk Assessment Model Point Value = 1 Point Value = 2 Point Value = 3 Point Value = 5 Age 41-60 Minor surgery BMI > 25 kg/m2 Swollen legs Varicose veins or History of unexplained or recurrent spontaneous Oral contraceptives or hormone replacement Sepsis (< 1 month) Serious lung disease, including pneumonia (< 1 month) Abnormal pulmonary function Acute myocardial infarction Congestive heart failure (< 1 month) History of inflammatory bowel disease Medical patient at bed rest Age 61-74 Arthroscopic surgery Major open surgery (> 45 min) Laparoscopic surgery (> 45 min) Malignancy Confined to bed (> 72 hours) Immobilizing plaster cast Central venous access Age >= 75 History of VTE Family history of VTE Factor V Leiden Prothrombin [id number] Lupus anticoagulant Anticardiolipin antibodies Elevated serum homocysteine Heparin-induced thrombocytopenia Other congenital or acquired thrombophilia Stroke (< 1 month) Elective arthroplasty Hip, pelvis, or leg fracture Acute spinal cord injury (< 1 month) Prophylaxis Regimen Total Risk Factor Score Risk Level Prophylaxis Regimen 0-1 Low Early ambulation 2 Moderate Order ONE of the following: *Sequential Compression Device (SCD) *Heparin 5000 units SQ BID 3-4 Higher Order ONE of the following medications: *Heparin 5000 units SQ TID *Enoxaparin/Lovenox 40 mg SQ daily (WT < 150 kg, CrCl > 30 mL/min) *Enoxaparin/Lovenox 30 mg SQ daily (WT < 150 kg, CrCl > 10-29 mL/min) *Enoxaparin/Lovenox 30 mg SQ BID (WT < 150 kg, CrCl > 30 mL/min) AND/OR *Sequential Compression Device (SCD) 5 or more Highest Order ONE of the following medications: *Heparin 5000 units SQ TID (Preferred with Epidurals) *Enoxaparin/Lovenox 40 mg SQ daily (WT < 150 kg, CrCl > 30 mL/min) *Enoxaparin/Lovenox 30 mg SQ daily (WT < 150 kg, CrCl > 10-29 mL/min) *Enoxaparin/Lovenox 30 mg SQ BID (WT < 150 kg, CrCl > 30 mL/min) AND *Sequential Compression Device (SCD) Assessment and Plan Assessment and Plan 51-year-old male with Altered mental status on admission Memory loss on admission History of MS Marijuana use Tobacco use Poss malingering Poss UTI Urine cx pending started rocephine IV Denies taking any meds Thinks he has a neurology Dr that he follows Poor historian CT head reviewed and no acute findings Labs unremarkable Consult neuro Consult psych Consult PT Consult ST for further eval cognitive eval IVF Monitor DVT ppx scd /teds/lovenox Discussed Condition With pt, nurse, ED physician An Mejias MD Apr 29, 2017 15:08
[2017-04-29] MEDS ORDERED: cefTRIAXone INJ 1,000 MG in SODIUM CHLORIDE 0.9% INJ 100 ML IV SCH (16:00)
--- NOTE | 2017-04-29 17:59 | MB ---
cc: KING HARVEY DATE OF CONSULTATION 04/29/17 A 51-year-old man who tells me he has a history of MS. He is not sure where he lives and he came in, picked up at a congregational, according to the ER note. He does not know where he lives, although he knows he is in [facility]. He evidently moved from [place] in the past month or so, was found at a congregational. He says he has MS, but does not know who treats him. He says he is not on any medicines. On the chart, it says he has Alzheimer's disease, although I am not sure how accurate this diagnosis is. He was in here in the ER on 04/20/2017. The patient was admitted for observation. restaurant service manager then talked to the patient's son and the patient was living at [facility], did not want to pay rent, moved to another facility. He has a wheelchair and gets around with that. He collects Medicare and Medicaid. He was discharged to his , evidently has some financial means. REVIEW OF SYSTEMS He denied any hypertension, diabetes, hypercholesterolemia, LA, coronary artery bypass graft, arrhythmia, renal, hepatic or pulmonary disease, thyroid disease, lupus, ulcer, cancer, seizure or stroke. SOCIAL HISTORY He is a smoker, not a drinker. No drugs. Does not know where he lives. He knows he is in [place]. FAMILY HISTORY Negative of cancer, seizure, stroke according to the patient. NEUROLOGIC EXAM He is afebrile. 124/78, 16, 86. NECK: There are no carotid bruits. HEART: Regular rhythm. I did not detect a murmur. Pupils are equal, visual melton are full. Extraocular movements are intact. Face is symmetric with normal sensation. Tongue was midline. No drift. He had normal strength in bilateral upper extremities. Bilateral lower extremity 0/5. He has some mild increased tone in the left lower extremity, otherwise, his tone is really not that bad but he has bilateral ankle clonus multiple times and bilateral upgoing toes. DTRs are hyperreflexic in the lower extremities. Pinprick however was intact. He is not ataxic on [id number]. Speech is fluent. He is not aphasic. He does not know the president. He does not know the year. He knows he is in [place], [place], does not know where he lives. LABORATORY DATA CBC is normal. It looks like he had some blood work done on 04/20/2017. Urine drug screen positive for marijuana now and on 04/20/2017. UA negative on this admission. Basic metabolic profile has been normal. LFTs normal. Ammonia level normal. Troponin was negative on 04/20. Albumin is 3.6, thyroid was normal then. IMAGING STUDIES He had a CAT scan of the brain done today, read as normal. Some scarring in his lung. Review of the CT of the brain - white matter change it looks like on the left and on the external capsule, otherwise, I do not see any definite major white matter or black holes that would be seen with MS. IMPRESSION We can check an MRI of the brain and EEG and evidently he has chronic MS and his exam would be consistent with that. We will check a B12 level on him although I am not sure how much of this could be he did not want to pay his rent again. I suspect he might have some chronic memory loss due to his MS. I suggest someone call his son and see what kind of better living conditions he could get in. MD TESS Caban/ /1:51 PM /5:44 PM
[2017-04-29] MEDS ORDERED: GADODIAMIDE PF 287 MG/ML 5 ML VIAL (for RAD MRI) IVCONTRAST ONE (18:50)
--- NOTE | 2017-04-29 19:19 | RADRPT ---
EXAM DATE/TIME: 04/29/2017 18:26 [facility] COMPARISON: CT BRAIN W/O CONTRAST, April 29, 2017, 7:49. INDICATIONS : CVA. CONTRAST: 11 cc Omniscan (gadodiamide) IV MEDICAL HISTORY : Multiple sclerosis. SURGICAL HISTORY : None. ENCOUNTER: Initial ACUITY: 1 day PAIN SCORE: 0/10 LOCATION: Head. TECHNIQUE: Multiplanar, multisequence MRI of the brain was performed both prior to and following the administrat ion of paramagnetic contrast. FINDINGS: CEREBRUM: The ventricles are normal for age. No evidence of midline shift, mass lesion, hemorrhage or acute in farction. No extraaxial fluid collections are seen. The pituitary gland and suprasellar cistern are normal in configuration. WHITE MATTER: Mild signal abnormalities are seen in the white matter. POSTERIOR FOSSA: The cerebellum and brainstem are intact. The 4th ventricle is midline. The cerebellopontine angle is unremarkable. The cerebellar tonsils are normal in position. DIFFUSION IMAGING: No focal areas of restricted diffusion are seen. No evidence of acute infarction. EXTRACRANIAL: The visualized portions of the orbits and paranasal sinuses are unremarkable. POST-CONTRAST: No abnormal areas of parenchymal or dural enhancement. No evidence of blood-brain barrier breakdown. CONCLUSION: 1. There are mild signal abnormalities in the periventricular white matter in a pattern usually seen with chronic ischemic demyelinization. Cannot exclude multiple sclerosis given history of such. No re cent infarct. No mass effect or midline shift. No hydrocephalus. No abnormal enhancing lesions postco ntrast. Rio Chavez MD on April 29, 2017 at 19:13 Board Certified Radiologist. This report was verified electronically.
[2017-04-29 20:22] LABS: FOLATE 19.4 NG/ML (3.1-17.5)
--- NOTE | 2017-04-29 22:27 | MG ---
cc: DEVENDRA LAMAS MD PHD Lab No: [id number] Date: 04/28/17 Age: Sex: M Race: TECHNIQUE A 17 channel EEG. DESCRIPTION The background rhythm is a symmetrical alpha rhythm, frequency is about 8-9 Hz, amplitude roughly 20 microvolts. During drowsiness, there is some slowing in the theta range. Occasional muscle artifact is identified. No lateralizing features are seen. No epileptiform discharges are seen. The patient does appear to fall asleep and vertex sharp waves are seen consistent with normal sleep activity associated with sleep spindles. Hyperventilation was not done. Photic stimulation results in a modest driving response, but this is symmetric. INTERPRETATION Normal EEG. MD SARAH BETH Cabezas/ /8:31 PM /10:15 PM
[2017-04-29] MEDS: SODIUM CHLORIDE 0.9% FLUSH 10 ML FLUSH IV FLUSH SCH (22:46)
[2017-04-29] MEDS: DOCUSATE SODIUM 50 MG/SENNA 8.6 MG TAB PO SCH (22:46)
[2017-04-30] VITALS (8 sets, daily range): BP systolic 110–123; BP diastolic 56–74; PULSE 71–88; RESP 16–18; TEMP 98–98.7; O2SAT 97–98
[2017-04-30 05:07] LABS: AUTOMATED NEUTROPHIL # 3.2 TH/MM3 (1.8-7.7); BASOPHIL % 0.5 % (0.0-2.0); EOSINOPHIL % 0.3 % (0.0-4.0); HEMATOCRIT 36.3 % (39.0-51.0); HEMOGLOBIN 12.9 GM/DL (13.0-17.0); LYMPH % 13.8 % (9.0-44.0); LYMPHOCYTE # 0.6 TH/MM3 (1.0-4.8); MEAN CELL VOLUME 88.4 FL (80.0-100.0); MEAN CORPUSCULAR HEMOGLOBIN 31.4 PG (27.0-34.0); MEAN CORPUSCULAR HGB CONC 35.6 % (32.0-36.0); MEAN PLATELET VOLUME 8.5 FL (7.0-11.0); MONO % 7.7 % (0.0-8.0); MONOCYTE # 0.3 TH/MM3 (0-0.9); NEUT % 77.7 % (16.0-70.0); PLATELET COUNT 132 TH/MM3 (150-450); RED BLOOD COUNT 4.11 MIL/MM3 (4.50-5.90); RED CELL DISTRIBUTION WIDTH 12.9 % (11.6-17.2); WHITE BLOOD COUNT 4.1 TH/MM3 (4.0-11.0)
[2017-04-30] MEDS: NICOTINE 7 MG/24 HR PATCH T-DERMAL SCH (05:15)
[2017-04-30] MEDS: SODIUM CHLOR 0.9% 1000 ML INJ 1,000 ML IV SCH ×2 (05:18→06:22)
[2017-04-30 05:33] LABS: BICARBONATE 25.7 MEQ/L (21.0-32.0); CALCIUM 7.8 MG/DL (8.5-10.1); CREATININE 0.83 MG/DL (0.60-1.30)
--- NOTE | 2017-04-30 07:28 | HHI.PR ---
Subjective Remarks still cannot remember where he has been living Objective Vital Signs Date Time Temp Pulse Resp B/P (MAP) Pulse Ox O2 Delivery O2 Flow Rate FiO2 04/30/17 04:29 98.0 79 16 110/56 (74) 98 04/30/17 00:18 98.0 88 16 121/72 (88) 98 04/29/17 19:39 99.0 94 16 117/65 (82) 96 04/29/17 19:34 99 04/29/17 14:01 98.8 82 18 123/76 (92) 100 04/29/17 13:30 86 16 124/78 (93) 97 04/29/17 12:14 84 17 127/81 (96) 98 Room Air 04/29/17 11:25 98 21 04/29/17 11:14 87 16 129/83 (98) 98 Room Air 04/29/17 09:13 84 17 125/80 (95) 100 Room Air 04/29/17 08:13 98 Room Air I/O 04/29/17 04/29/17 04/29/17 04/30/17 04/30/17 04/30/17 07:00 15:00 23:00 07:00 15:00 23:00 Intake Total 1400 ml Balance 1400 ml Intake Oral 400 ml IV Total 1000 ml # Voids 1 3 # Bowel Movements 0 Result Diagram: 04/30/1743404/30/17 043 Objective Remarks can move the lle a little 2 not rle Assessment and Plan Assessment and Plan imp mri has some what could be construed as black holes a prominent wm change r pos that reaches subcortical non enhancing eeg nl if has ms must be mostly in cord labs ok plan needs social sciences instructor [place] placement check us carotid and mri of spine if us neg and spine mri neg for cord compression or enhancement he could dc neuro andersen Hebert Lim MD Apr 30, 2017 07:28
[2017-04-30] MEDS ORDERED: GADODIAMIDE PF 287 MG/ML 5 ML VIAL (for RAD MRI) IV PUSH ONE (09:05)
--- NOTE | 2017-04-30 09:43 | RADRPT ---
EXAM DATE/TIME: 04/30/2017 09:05 [facility] COMPARISON: No previous studies available for comparison. INDICATIONS : Altered mental status. MEDICAL HISTORY : Multiple sclerosis. Alzheimer's. Tobacco use. SURGICAL HISTORY : None. ENCOUNTER: Initial ACUITY: 1 day PAIN SCORE: 0/10 LOCATION: Bilateral neck PEAK SYSTOLIC VELOCITIES (cm/sec): ICA/CCA RATIO: Right: 0.6 Left: 0.7 ICA: Right: 79 Left: 87 CCA: Right: 140 Left: 126 ECA: Right: 126 Left: 102 VERTEBRAL: Right: 41 antegrade Left: 33 antegrade Elevated flow velocities and ICA/CCA ratios have been found to correlate with increased degrees of vessel stenosis, calculated as percentage of diameter relative to a normal segment of distal ICA/CCA FINDINGS: RIGHT CAROTID: No significant stenosis is visualized. The waveforms are within normal limits. LEFT CAROTID: No significant stenosis is visualized. The waveforms are within normal limits. VERTEBRAL ARTERIES: Antegrade flow is seen in both vertebral arteries. MISCELLANEOUS: None. CONCLUSION: Negative for hemodynamically significant stenosis.. Gaston Hinojosa MD FACR on April 30, 2017 at 9:41 Board Certified Radiologist. This report was verified electronically.
[2017-04-30] MEDS: DOCUSATE SODIUM 50 MG/SENNA 8.6 MG TAB PO SCH ×2 (10:02→21:00)
[2017-04-30] MEDS: SODIUM CHLORIDE 0.9% FLUSH 10 ML FLUSH IV FLUSH SCH ×2 (10:02→21:00)
--- NOTE | 2017-04-30 10:12 | RADRPT ---
EXAM DATE/TIME: 04/30/2017 08:23 [facility] COMPARISON: No previous studies available for comparison. INDICATIONS : Inability to ambulate. CONTRAST: 11 cc Omniscan (gadodiamide) IV MEDICAL HISTORY : Multiple sclerosis. SURGICAL HISTORY : None. ENCOUNTER: Subsequent ACUITY: 2 day PAIN SCORE: 0/10 LOCATION: spine TECHNIQUE: Screening MRI of the entire spinal axis was performed in the sagittal and axial planes. FINDINGS: Vertebral body heights are intact. Sagittal alignment is maintained. Cord appears grossly unremarkabl e without evidence for abnormal enhancement or significant cord edema. There is no abnormal marrow en hancement or focal mass. There is degenerative spondylosis of the cervical spine most prominently at C4-7 with associated moderate multilevel spinal canal stenosis. No significant central canal stenosis in the thoracic or lumbar spine. Mild disc space narrowing in this dictation in the lower thoracic s pine. Moderate disc space narrowing and desiccation at L5-S1. No abnormal disc signal or enhancement. No significant paravertebral abnormality. Pertinent levels as below- C3-4: Eccentric right posterior disc osteophyte complex with mild effacement of the right anterior lateral recess. Mild right neural foraminal stenosis. C4-5: Slightly left eccentric posterior disc osteophyte complex effacing the anterior thecal sac with donald ening of the cervical cord. No significant cord signal abnormality. Central canal measures approximat raina 9 mm. Right facet arthropathy. Moderate right neural foraminal narrowing secondary to osteophytes . C5-6: Slightly left eccentric posterior disc osteophyte complex effacing the anterior thecal sac with donald ening of the cervical cord. No significant cord edema. Central canal measures approximately 9 mm. Rig ht facet arthropathy. Mild right neural foraminal stenosis. C6-7: Posterior disc osteophyte complex effacing the anterior thecal sac. Central canal measures approximat raina 10 mm. Mild left neural foraminal narrowing. L5-S1: Disc space loss with disc desiccation and mild diffuse disc bulge. Mild ligamentum flavum hypertrophy and bilateral facet arthropathy. No significant central canal stenosis or neural foraminal narrowing . CONCLUSION: 1. Multilevel degenerative spondylosis of the cervical spine with resultant multilevel moderate centr al canal stenosis. This is most prominent at C4-7. 2. No mass, abnormal enhancement or significant cord edema. 3. Degenerative spondylosis of the lower lumbar spine at L5-S1 without significant central canal or n eural foraminal narrowing. Branden Linares MD on April 30, 2017 at 9:50 Board Certified Radiologist. This report was verified electronically.
[2017-04-30] MEDS: ENOXAPARIN SODIUM 40 MG/0.4 ML SYRINGE SQ SCH (13:01)
[2017-04-30 13:43] LABS: ANA SCREEN NEG (NEG)
--- NOTE | 2017-04-30 16:54 | HHI.PR ---
Subjective Remarks Follow-up on patient with altered mental status, history of MS. Patient seen and examined. Patient states he is the same. He denies any acute medical complaints. States that he has lost his memory secondary to MS and cannot recall events leading up to his hospitalization. He cannot recall neurologist he follows with. He denies any fever or chills. Denies any chest pain or shortness of breath. Denies any nausea, vomiting or abdominal pain. Objective Vitals Vital Signs Date Time Temp Pulse Resp B/P (MAP) Pulse Ox O2 Delivery O2 Flow Rate FiO2 04/30/17 12:28 98.7 82 18 119/74 (89) 98 04/30/17 07:50 98.4 76 18 117/72 (87) 98 04/30/17 04:29 98.0 79 16 110/56 (74) 98 04/30/17 00:18 98.0 88 16 121/72 (88) 98 04/29/17 19:39 99.0 94 16 117/65 (82) 96 04/29/17 19:34 99 I/O 04/29/17 04/29/17 04/29/17 04/30/17 04/30/17 04/30/17 07:00 15:00 23:00 07:00 15:00 23:00 Intake Total 1400 ml Balance 1400 ml Intake Oral 400 ml IV Total 1000 ml # Voids 1 3 # Bowel Movements 0 Result Diagram: 04/30/17 0435 04/30/17 0435 Imaging Last Impressions Entire Spine MRI 04/30/17 0728 Signed Impressions: Service Date/Time: Sunday, April 30, 2017 08:23 - CONCLUSION: 1. Multilevel degenerative spondylosis of the cervical spine with resultant multilevel moderate central canal stenosis. This is most prominent at C4-7. 2. No mass, abnormal enhancement or significant cord edema. 3. Degenerative spondylosis of the lower lumbar spine at L5-S1 without significant central canal or neural foraminal narrowing. Branden Linares MD Carotid Artery Ultrasound 04/30/17 0000 Signed Impressions: Service Date/Time: Sunday, April 30, 2017 09:05 - CONCLUSION: Negative for hemodynamically significant stenosis.. Gaston Hinojosa MD FACR Brain MRI 04/29/17 1356 Signed Impressions: Service Date/Time: April 18:26 - CONCLUSION: 1. There are mild signal abnormalities in the periventricular white matter in a pattern usually seen with chronic ischemic demyelinization. Cannot exclude multiple sclerosis given history of such. No recent infarct. No mass effect or midline shift. No hydrocephalus. No abnormal enhancing lesions postcontrast. Rio Chavez MD Head CT 04/29/17 0729 Signed Impressions: Service Date/Time: April 07:49 - CONCLUSION: 1. No acute intracranial abnormality. Branden Linares MD Objective Remarks GENERAL: This is a frail thin male patient, in no apparent distress. Awake and alert. SKIN: No rashes, ecchymoses or lesions. Cool and dry. HEAD: Atraumatic. Normocephalic. No temporal or scalp tenderness. EYES: Extraocular motions intact. No scleral icterus. No injection or drainage. ENT: Nose without bleeding, purulent drainage or septal hematoma. Throat without erythema, tonsillar hypertrophy or exudate. Uvula midline. Airway patent. NECK: Trachea midline. No JVD or lymphadenopathy. Supple, nontender, no meningeal signs. CARDIOVASCULAR: Regular rate and rhythm without murmurs, gallops, or rubs. RESPIRATORY: Clear to auscultation. Breath sounds equal bilaterally. No wheezes , rales, or rhonchi. GASTROINTESTINAL: Abdomen soft, non-tender, nondistended. No hepato-splenomegaly , or palpable masses. No guarding. MUSCULOSKELETAL: Extremities without clubbing, cyanosis, or edema. No joint tenderness, effusion, or edema noted. No calf tenderness. Negative Homans sign bilaterally. NEUROLOGICAL: Awake and alert. Knows his name and his date of , knows he is in the hospital and knows the name of the crib attendant. Cranial nerves grossly intact except patient right eye motor and sensory grossly within normal limits. Some weakness on the right side right arm or right leg, the patient says he is [id number]. Normal speech. Medications and IVs Current Medications Medications (Trade) Dose Ordered Sig/Mike Route Start Time Stop Time Status Last Admin Sodium Chloride 1,000 ml @ 100 mls/hr Q10H IV 04/29/17 10:26 04/30/17 05:18 (NS Flush) 2 ml UNSCH PRN IV FLUSH 2/15/18 10:30 (NS Flush) 2 ml BID IV FLUSH 04/29/17 21:00 04/30/17 10:02 (Tylenol) 650 mg Q4H PRN PO 04/29/17 10:30 (Zofran Inj) 4 mg Q6H PRN IVP 04/29/17 10:30 (Lovenox Inj) 40 mg Q24H SQ 04/29/17 11:00 04/30/17 13:01 (Narcan Inj) 0.4 mg UNSCH PRN IV PUSH 04/29/17 10:30 (Sis-Colace) 1 tab BID PO 04/29/17 21:00 04/30/17 10:02 (Milk Of Magnesia Liq) 30 ml Q12H PRN PO 04/29/17 10:30 (Senokot) 17.2 mg Q12H PRN PO 04/29/17 10:30 (Dulcolax Supp) 10 mg DAILY PRN RECTAL 04/29/17 10:30 (Lactulose Liq) 30 ml DAILY PRN PO 04/29/17 10:30 Ceftriaxone Sodium 1000 mg/ Sodium Chloride 100 ml @ 200 mls/hr Q24H IV 04/29/17 16:00 04/29/17 16:28 (Habitrol 7 Mg Patch.24 Hr) 1 patch Q24H T-DERMAL 04/30/17 05:00 04/30/17 05:15 A/P Assessment and Plan 51-year-old male with Altered mental status on admission Memory loss on admission History of MS Poss malingering CT head reviewed and no acute findings Labs unremarkable Neurology following, appreciate assistance. MRI of the spine and carotid ultrasound ordered. EEG normal Psych consulted, appreciate assistance - awaiting eval/recommendations. PT recommends rehab/SNF ST for cognitive evaluation - dependent, partial help required per their assessment. Bacteruria Started on Rocephin. Urine culture showing mixed chitra, probable contaminant. DC Rocephin. Marijuana use Tobacco use Advised on cessation DVT ppx scd /teds/lovenox Discharge Planning Possible discharge tomorrow pending neurology and psychiatry clearance Carol Deleon Apr 30, 2017 16:54
[2017-05-01] MEDS: ACETAMINOPHEN 325 MG TAB PO PRN (00:43)
--- NOTE | 2017-05-01 01:03 | EKG ---
Date Performed: 04/29/2017 Time Performed: 14:21:01 PTAGE: 51 years EKG: Sinus rhythm INDETERMINATE AXIS POSSIBLE RIGHT VENTRICULAR CONDUCTION DELAY BORDERLINE ECG Since the prior tracin g, there has been no significant change DOCTOR: Shawn Briggs Interpretating Date/Time 05/01/2017 01:02:09
[2017-05-01 02:56] VITALS: BP 109/65; PULSE 80; RESP 18; TEMP 98.3; O2SAT 99
[2017-05-01] MEDS: NICOTINE 7 MG/24 HR PATCH T-DERMAL SCH (05:00)
[2017-05-01 08:19] VITALS: BP 110/63; PULSE 93; RESP 16; TEMP 96.4; O2SAT 98
[2017-05-01] MEDS: SODIUM CHLORIDE 0.9% FLUSH 10 ML FLUSH IV FLUSH SCH ×3 (08:58→21:00)
[2017-05-01] MEDS: DOCUSATE SODIUM 50 MG/SENNA 8.6 MG TAB PO SCH ×2 (08:58→21:00)
--- NOTE | 2017-05-01 09:28 | HHI.PR ---
Subjective Remarks Patient seen this morning. Says he feels all right, denies any chest pain, shortness of breath, nausea, vomiting. However is very distraught over losing his red scooter. He says he left it at a library. The nurse is going to call around check. Objective Vital Signs Date Time Temp Pulse Resp B/P (MAP) Pulse Ox O2 Delivery O2 Flow Rate FiO2 05/01/17 08:19 96.4 93 16 110/63 (79) 98 05/01/17 02:56 98.3 80 18 109/65 (80) 99 04/30/17 23:26 98.4 71 18 110/67 (81) 98 04/30/17 20:48 98.1 84 18 123/68 (86) 97 04/30/17 19:58 98 04/30/17 16:55 98.5 84 18 117/70 (86) 97 04/30/17 12:28 98.7 82 18 119/74 (89) 98 I/O 04/30/17 04/30/17 04/30/17 05/01/17 05/01/17 05/01/17 07:00 15:00 23:00 07:00 15:00 23:00 Intake Total 1400 ml Balance 1400 ml Intake Oral 400 ml IV Total 1000 ml # Voids 3 4 2 # Bowel Movements 0 1 Result Diagram: 04/30/17 0435 04/30/17 0435 Objective Remarks GENERAL: Patient sleeping, wakes up for exam. SKIN: Warm and dry. HEAD: Normocephalic. EYES: No scleral icterus. No injection or drainage. NECK: Supple, trachea midline. No JVD. CARDIOVASCULAR: Regular rate and rhythm without murmurs, gallops, or rubs. RESPIRATORY: Breath sounds equal bilaterally. No accessory muscle use. GASTROINTESTINAL: Abdomen soft, non-tender, nondistended. MUSCULOSKELETAL: No cyanosis, or edema. BACK: Nontender without obvious deformity. No CVA tenderness. A/P Assessment and Plan 51-year-old male with //Altered mental status on admission //Memory loss on admission //History of MS //Poss malingering CT head reviewed and no acute findings Labs unremarkable Neurology following, appreciate assistance. MRI of the spine and carotid ultrasound ordered. EEG normal Psych consulted, appreciate assistance - awaiting eval/recommendations. PT recommends rehab/SNF ST for cognitive evaluation - dependent, partial help required per their assessment. = Neurology following. Follow-up recommendations. Psychiatry following. Follow-up recommendations. //Bacteruria Started on Rocephin. Urine culture showing mixed chitra, probable contaminant. DC Rocephin. //Marijuana use Tobacco use Advised on cessation //DVT ppx scd /teds/lovenox Discharge Planning Possible discharge rehab or SNF pending neurology and psychiatry clearance. Case management assistance appreciated. Joe Galvez MD May 01, 2017 09:27
[2017-05-01] MEDS: ENOXAPARIN SODIUM 40 MG/0.4 ML SYRINGE SQ SCH (11:00)
[2017-05-01 11:20] VITALS: BP 122/75; PULSE 97; RESP 18; TEMP 96.8; O2SAT 97
--- NOTE | 2017-05-01 11:56 | HHI.PYPN ---
Subjective Remarks Patient seen in his room with nurse, chart review, patient discussed with nurse. Patient is alert and oriented thin slender white male sitting in his bed acknowledging his MS and acknowledging his ambulatory deficits. That he needs his power chair to get around. Stating that it became apparent he would' ve a difficult time leaving here. He denies suicidality homicidality voices or visions. At the same patient does not meet criteria for inpatient psychiatric care. As okay by psych for discharge when medically cleared and his transportation issue has been addressed. Thanks for consult I will sign off now Review of Systems Except as stated in HPI: all other systems reviewed are Neg Mental Status Examination Appearance: Appropriate Consciousness: Alert Orientation: Person Motor Activity: Normal gait Speech: Unremarkable Language: Adequate Fund of Knowledge: Adequate, Inadequate Attention and Concentration: Adequate Memory: Impaired Mood: Appropriate Affect: Irritable Thought Process & Associations: Intact Thought Content: Appropriate Hallucination Type: None Delusion Type: None Suicidal Ideation: No Suicidal Plan: No Suicidal Intention: No Homicidal Ideation: No Homicidal Plan: No Homicidal Intention: No Insight: Fair Judgment: Impulsive Results Labs Date/Time Source Procedure Growth Status 04/29/17 09:30 Urine Catheterized Urine Urine Culture - Final 50-100,000 CFU/ML MIXED ODETTE... Complete Vitals/IOs Vital Signs Date Time Temp Pulse Resp B/P (MAP) Pulse Ox O2 Delivery O2 Flow Rate FiO2 05/01/17 11:20 96.8 97 18 122/75 (91) 97 04/29/17 12:14 Room Air 04/29/17 11:25 21 Assessment & Plan Problem List: (1) Major neurocognitive disorder ICD Codes: F03.90 - Unspecified dementia without behavioral disturbance Assessment & Plan Estimated LOS: days is okay by psych for discharge when medically clear and stable. No recommendations for medication at this time. Follow-up PCP Justification for Cont. Inpt. Discharge plans be made by medicine service Discharge Planning See above Request HC Surrog/Guard Advoc?: No Kulwinder Garvin MD May 01, 2017 11:56
[2017-05-01 16:13] VITALS: BP 124/71; PULSE 77; RESP 19; TEMP 97.8; O2SAT 97
[2017-05-01 20:28] VITALS: BP 101/68; PULSE 82; RESP 18; TEMP 98.1; O2SAT 98
[2017-05-02] MEDS: NICOTINE 7 MG/24 HR PATCH T-DERMAL SCH (05:00)
[2017-05-02 05:36] VITALS: BP 121/68; PULSE 78; RESP 18; TEMP 98.1; O2SAT 98
[2017-05-02 07:00] VITALS: BP 91/63; PULSE 77; RESP 18; TEMP 98.2; O2SAT 97
[2017-05-02] MEDS: DOCUSATE SODIUM 50 MG/SENNA 8.6 MG TAB PO SCH ×2 (09:00→21:00)
[2017-05-02] MEDS: SODIUM CHLORIDE 0.9% FLUSH 10 ML FLUSH IV FLUSH SCH ×3 (09:00→21:00)
[2017-05-02 11:21] VITALS: BP 113/72; PULSE 83; RESP 18; TEMP 97; O2SAT 97
--- NOTE | 2017-05-02 11:31 | HHI.PR ---
Review/Management Diagnosis MS---chronic Plan Ok to discharge from neurologic standpoint Diagnosis/Plan: Subjective Subjective Comments No acute events reported Still with memory loss which he states is chronic He has severe bilateral LE weakness which he states has been there > 1 year due to MS Active Medications Current Medications Medications (Trade) Dose Ordered Sig/Mike Route Start Time Stop Time Status Last Admin (NS Flush) 2 ml UNSCH PRN IV FLUSH 04/29/17 10:30 (NS Flush) 2 ml BID IV FLUSH 04/29/17 21:00 04/30/17 10:02 (Tylenol) 650 mg Q4H PRN PO 04/29/17 10:30 05/01/17 00:43 (Zofran Inj) 4 mg Q6H PRN IVP 04/29/17 10:30 (Lovenox Inj) 40 mg Q24H SQ 04/29/17 11:00 04/30/17 13:01 (Narcan Inj) 0.4 mg UNSCH PRN IV PUSH 04/29/17 10:30 (Sis-Colace) 1 tab BID PO 04/29/17 21:00 05/01/17 08:58 (Milk Of Magnesia Liq) 30 ml Q12H PRN PO 04/29/17 10:30 (Senokot) 17.2 mg Q12H PRN PO 04/29/17 10:30 (Dulcolax Supp) 10 mg DAILY PRN RECTAL 04/29/17 10:30 (Lactulose Liq) 30 ml DAILY PRN PO 04/29/17 10:30 (Habitrol 7 Mg Patch.24 Hr) 1 patch Q24H T-DERMAL 04/30/17 05:00 04/30/17 05:15 Allergies Allergies Coded Allergies No Allergy Information Available (Unverified04/29/17) Exam I&O / VS Vital Signs Date Time Temp Pulse Resp B/P (MAP) Pulse Ox O2 Delivery O2 Flow Rate FiO2 05/02/17 11:21 97.0 83 18 113/72 (86) 97 05/02/17 07:00 98.2 77 18 91/63 (72) 97 05/02/17 05:36 98.1 78 18 121/68 (85) 98 05/01/17 20:28 98.1 82 18 101/68 (79) 98 05/01/17 16:13 97.8 77 19 124/71 (88) 97 Exam Comments alert, oriented time 2. Poor recent memory, speech is normal CN intact MOTOR 5/5 BUE, 3/5 BLE Objective Radiology Results MRI spine--spondylosis at C4-C7. There is no significant cord compression or edema. No sign of MS plaques in the cord. Micro and Labs Date/Time Source Procedure Growth Status 04/29/17 09:30 Urine Catheterized Urine Urine Culture - Final 50-100,000 CFU/ML MIXED ODETTE... Complete Miguel Ángel Treadwell MD PhD May 02, 2017 11:31
[2017-05-02] MEDS: ENOXAPARIN SODIUM 40 MG/0.4 ML SYRINGE SQ SCH (11:52)
--- NOTE | 2017-05-02 13:00 | HHI.PR ---
Subjective Remarks Patient seen this morning around 11 AM. Says he is feeling all right. Denies any chest pain or shortness of breath. No changes per nursing. Objective Vital Signs Date Time Temp Pulse Resp B/P (MAP) Pulse Ox O2 Delivery O2 Flow Rate FiO2 05/02/17 11:21 97.0 83 18 113/72 (86) 97 05/02/17 07:00 98.2 77 18 91/63 (72) 97 05/02/17 05:36 98.1 78 18 121/68 (85) 98 05/01/17 20:28 98.1 82 18 101/68 (79) 98 05/01/17 16:13 97.8 77 19 124/71 (88) 97 I/O 05/01/17 05/01/17 05/01/17 05/02/17 05/02/17 05/02/17 07:00 15:00 23:00 07:00 15:00 23:00 Intake Total 200 ml 200 ml Balance 200 ml 200 ml Intake Oral 200 ml 200 ml # Voids 2 Result Diagram: 04/30/17 0435 04/30/17 043 Objective Remarks GENERAL: Awake, alert. Disoriented. Pleasant. SKIN: Warm and dry. HEAD: Normocephalic. EYES: No scleral icterus. No injection or drainage. NECK: Supple, trachea midline. No JVD. CARDIOVASCULAR: Regular rate and rhythm without murmurs, gallops, or rubs. RESPIRATORY: Breath sounds equal bilaterally. No accessory muscle use. GASTROINTESTINAL: Abdomen soft, non-tender, nondistended. MUSCULOSKELETAL: No cyanosis, or edema. BACK: Nontender without obvious deformity. No CVA tenderness. A/P Assessment and Plan 51-year-old male with //Altered mental status on admission //Memory loss on admission //History of MS //Poss malingering CT head reviewed and no acute findings Labs unremarkable Neurology following, appreciate assistance. MRI of the spine and carotid ultrasound ordered. EEG normal Psych consulted, appreciate assistance - awaiting eval/recommendations. PT recommends rehab/SNF ST for cognitive evaluation - dependent, partial help required per their assessment. = Neurology following. Follow-up recommendations. Psychiatry following. Follow-up recommendations. = Neurology is cleared for discharge. //Bacteruria Started on Rocephin. Urine culture showing mixed chitra, probable contaminant. DC Rocephin. //Marijuana use Tobacco use Advised on cessation //DVT ppx scd /teds/lovenox Discharge Planning Possible discharge rehab or SNF when arrangements made by case management.. Patient is cleared by psychiatry and neurology. Joe Galvez MD May 02, 2017 13:00
[2017-05-02 15:04] VITALS: BP 109/67; PULSE 68; RESP 18; TEMP 98; O2SAT 98
[2017-05-02 20:00] VITALS: BP 104/58; PULSE 58; RESP 18; TEMP 98.8; O2SAT 94
[2017-05-03] VITALS: BP_SYST 108; BP_SYST 131; BP_DIAS 68; PULSE 78; RESP 18; TEMP 98.4; O2SAT 98
[2017-05-03] MEDS: ACETAMINOPHEN 325 MG TAB PO PRN (00:22)
[2017-05-03] MEDS: NICOTINE 7 MG/24 HR PATCH T-DERMAL SCH (05:00)
[2017-05-03 06:54] VITALS: BP 114/78; PULSE 78; RESP 18; TEMP 97.8; O2SAT 97
[2017-05-03 07:19] VITALS: BP 111/67; PULSE 80; RESP 18; TEMP 98.7; O2SAT 97
--- NOTE | 2017-05-03 08:42 | HHI.PR ---
Objective Vital Signs Date Time Temp Pulse Resp B/P (MAP) Pulse Ox O2 Delivery O2 Flow Rate FiO2 05/03/17 07:19 98.7 80 18 111/67 (82) 97 05/03/17 06:54 97.8 78 18 114/78 (90) 97 05/03/17 01:02 18 05/03/17 00:00 98.4 78 18 108/68 (81) 98 05/02/17 20:00 98.8 58 18 104/58 (73) 94 05/02/17 15:04 98.0 68 18 109/67 (81) 98 05/02/17 11:21 97.0 83 18 113/72 (86) 97 I/O 05/02/17 05/02/17 05/02/17 05/03/17 05/03/17 05/03/17 07:00 15:00 23:00 07:00 15:00 23:00 Intake Total 200 ml 200 ml Balance 200 ml 200 ml Intake Oral 200 ml 200 ml Result Diagram: 04/30/17 0435 04/30/17 0435 Objective Remarks bilat ta 5/5 now and can lift rle off bed and left knee off Assessment and Plan Assessment and Plan imp mri has some what could be construed as black holes a prominent wm change r pos that reaches subcortical non enhancing eeg nl if has ms must be mostly in cord labs ok plan needs social and human services assistant nh placement check us carotid and mri of spine if us neg and spine mri neg for cord compression or enhancement he could dc neuro andersen 05/03/17 doing a lot better with ble movements oob PT no ms in cord definite and no cord compression us neg labs ok oob needs placement will signoff he can fu office 6 weeks Hebert Lim MD May 03, 2017 08:42
[2017-05-03] MEDS: SODIUM CHLORIDE 0.9% FLUSH 10 ML FLUSH IV FLUSH SCH ×2 (09:00→21:00)
[2017-05-03] MEDS: DOCUSATE SODIUM 50 MG/SENNA 8.6 MG TAB PO SCH ×2 (12:00→22:24)
[2017-05-03] MEDS: ENOXAPARIN SODIUM 40 MG/0.4 ML SYRINGE SQ SCH (12:00)
[2017-05-03 13:24] VITALS: BP 111/74; PULSE 88; RESP 18; TEMP 98.8; O2SAT 97
--- NOTE | 2017-05-03 13:41 | HHI.PR ---
Subjective Remarks Follow up on patient with AMS. Patient seen and examined. Patient denies any acute medical complaints. Continues to be fixated on getting his scooter which he states is in the library. Discussed with nurse, no acute issues noted. Objective Vitals Vital Signs Date Time Temp Pulse Resp B/P (MAP) Pulse Ox O2 Delivery O2 Flow Rate FiO2 05/03/17 13:24 98.8 88 18 111/74 (86) 97 05/03/17 07:19 98.7 80 18 111/67 (82) 97 05/03/17 06:54 97.8 78 18 114/78 (90) 97 05/03/17 01:02 18 05/03/17 00:00 98.4 78 18 108/68 (81) 98 05/02/17 20:00 98.8 58 18 104/58 (73) 94 05/02/17 15:04 98.0 68 18 109/67 (81) 98 I/O 05/02/17 05/02/17 05/02/17 05/03/17 05/03/17 05/03/17 07:00 15:00 23:00 07:00 15:00 23:00 Intake Total 200 ml 200 ml Balance 200 ml 200 ml Intake Oral 200 ml 200 ml Result Diagram: 04/30/17 0435 04/30/17 0435 Imaging Last Impressions Entire Spine MRI 04/30/17 0728 Signed Impressions: Service Date/Time: Sunday, April 30, 2017 08:23 - CONCLUSION: 1. Multilevel degenerative spondylosis of the cervical spine with resultant multilevel moderate central canal stenosis. This is most prominent at C4-7. 2. No mass, abnormal enhancement or significant cord edema. 3. Degenerative spondylosis of the lower lumbar spine at L5-S1 without significant central canal or neural foraminal narrowing. Branden Linares MD Carotid Artery Ultrasound 04/30/17 0000 Signed Impressions: Service Date/Time: Sunday, April 30, 2017 09:05 - CONCLUSION: Negative for hemodynamically significant stenosis.. Gaston Hinojosa MD FACR Brain MRI 04/29/17 1356 Signed Impressions: Service Date/Time: April 18:26 - CONCLUSION: 1. There are mild signal abnormalities in the periventricular white matter in a pattern usually seen with chronic ischemic demyelinization. Cannot exclude multiple sclerosis given history of such. No recent infarct. No mass effect or midline shift. No hydrocephalus. No abnormal enhancing lesions postcontrast. Rio Chavez MD Head CT 04/29/17 0729 Signed Impressions: Service Date/Time: April 07:49 - CONCLUSION: 1. No acute intracranial abnormality. Branden Linares MD Objective Remarks GENERAL: This is a frail thin male patient, in no apparent distress. Sitting up bed. Awake and alert. SKIN: Cool and dry. HEAD: Atraumatic. Normocephalic. EYES: Extraocular motions intact. No scleral icterus. No injection or drainage. ENT: Nose without bleeding or purulent drainage. Airway patent. MMM. NECK: Trachea midline. CARDIOVASCULAR: Regular rate and rhythm without murmurs, gallops, or rubs. RESPIRATORY: Clear to auscultation. Breath sounds equal bilaterally. No wheezes , rales, or rhonchi. GASTROINTESTINAL: Abdomen soft, non-tender, nondistended. MUSCULOSKELETAL: Extremities without clubbing, cyanosis, or edema. NEUROLOGICAL: Awake and alert. Knows his name and his date of , knows he is in the hospital and knows the name of the application support developer. Cranial nerves grossly intact except patient right eye motor and sensory grossly within normal limits. Some weakness on the right side right arm or right leg, the patient says he is [id number]. Normal speech. Medications and IVs Current Medications Medications (Trade) Dose Ordered Sig/Mike Route Start Time Stop Time Status Last Admin (NS Flush) 2 ml UNSCH PRN IV FLUSH 04/29/17 10:30 (NS Flush) 2 ml BID IV FLUSH 04/29/17 21:00 05/03/17 09:00 (Tylenol) 650 mg Q4H PRN PO 04/29/17 10:30 05/03/17 00:22 (Zofran Inj) 4 mg Q6H PRN IVP 04/29/17 10:30 (Lovenox Inj) 40 mg Q24H SQ 04/29/17 11:00 05/03/17 12:00 (Narcan Inj) 0.4 mg UNSCH PRN IV PUSH 04/29/17 10:30 (Sis-Colace) 1 tab BID PO 04/29/17 21:00 05/03/17 12:00 (Milk Of Magnesia Liq) 30 ml Q12H PRN PO 04/29/17 10:30 (Senokot) 17.2 mg Q12H PRN PO 04/29/17 10:30 (Dulcolax Supp) 10 mg DAILY PRN RECTAL 04/29/17 10:30 (Lactulose Liq) 30 ml DAILY PRN PO 04/29/17 10:30 (Habitrol 7 Mg Patch.24 Hr) 1 patch Q24H T-DERMAL 04/30/17 05:00 04/30/17 05:15 A/P Assessment and Plan 51-year-old male with Altered mental status on admission Memory loss on admission History of MS Poss malingering CT head reviewed and no acute findings Labs unremarkable Neurology following, appreciate assistance. No MS in cord or e/o cord compression. Neurology cleared for d/c and has signed off. EEG normal Evaluated by psychiatry, no immediate psych issue at present PT recommends rehab/SNF ST for cognitive evaluation - dependent, partial help required per their assessment. Bacteruria Started on Rocephin. Urine culture showing mixed chitra, probable contaminant. DC Rocephin. Marijuana use Tobacco use Advised on cessation DVT ppx scd /teds/lovenox Discharge Planning Discharge pending placement, CM following Carol Deleon May 03, 2017 13:41
[2017-05-03 17:31] VITALS: BP 134/96; PULSE 79; RESP 18; TEMP 98.5; O2SAT 97
[2017-05-03 20:42] VITALS: BP 146/65; PULSE 73; RESP 18; TEMP 98.1; O2SAT 97
[2017-05-04] MEDS: NICOTINE 7 MG/24 HR PATCH T-DERMAL SCH (05:00)
[2017-05-04 05:12] VITALS: BP 104/67; PULSE 83; RESP 16; TEMP 97.7; O2SAT 98
[2017-05-04 08:54] VITALS: BP 92/55; PULSE 85; RESP 16; TEMP 98.4; O2SAT 97
[2017-05-04] MEDS: SODIUM CHLORIDE 0.9% FLUSH 10 ML FLUSH IV FLUSH SCH ×2 (09:00→21:00)
[2017-05-04] MEDS: DOCUSATE SODIUM 50 MG/SENNA 8.6 MG TAB PO SCH ×2 (09:00→21:03)
[2017-05-04] MEDS: ENOXAPARIN SODIUM 40 MG/0.4 ML SYRINGE SQ SCH (11:00)
[2017-05-04 11:11] VITALS: BP 112/64; PULSE 83; RESP 16; TEMP 98.1; O2SAT 98
--- NOTE | 2017-05-04 11:19 | HHI.PR ---
Subjective Remarks Follow up for AMS, weakness, pending placement. The patient has no medical complaints today. He believes he is getting stronger because he is now eating well. No acute events overnight. Vital signs reviewed and stable. Objective Vitals Vital Signs Date Time Temp Pulse Resp B/P (MAP) Pulse Ox O2 Delivery O2 Flow Rate FiO2 05/04/17 11:11 98.1 83 16 112/64 (80) 98 05/04/17 08:54 98.4 85 16 92/55 (67) 97 05/04/17 05:12 97.7 83 16 104/67 (79) 98 05/03/17 20:42 98.1 73 18 146/65 (92) 97 05/03/17 17:31 98.5 79 18 134/96 (109) 97 05/03/17 13:24 98.8 88 18 111/74 (86) 97 I/O 05/03/17 05/03/17 05/03/17 05/04/17 05/04/17 05/04/17 07:00 15:00 23:00 07:00 15:00 23:00 Intake Total 200 ml 600 ml Output Total 0 ml Balance 200 ml 600 ml Intake Oral 200 ml 600 ml Output Stool Total 0 ml # Voids 4 3 Result Diagram: 04/30/17 0435 04/30/17 0435 Imaging Last Impressions Entire Spine MRI 04/30/17 0728 Signed Impressions: Service Date/Time: Sunday, April 30, 2017 08:23 - CONCLUSION: 1. Multilevel degenerative spondylosis of the cervical spine with resultant multilevel moderate central canal stenosis. This is most prominent at C4-7. 2. No mass, abnormal enhancement or significant cord edema. 3. Degenerative spondylosis of the lower lumbar spine at L5-S1 without significant central canal or neural foraminal narrowing. Branden Linares MD Carotid Artery Ultrasound 04/30/17 0000 Signed Impressions: Service Date/Time: Sunday, April 30, 2017 09:05 - CONCLUSION: Negative for hemodynamically significant stenosis.. Gaston Hinojosa MD FACR Brain MRI 04/29/17 1356 Signed Impressions: Service Date/Time: April 18:26 - CONCLUSION: 1. There are mild signal abnormalities in the periventricular white matter in a pattern usually seen with chronic ischemic demyelinization. Cannot exclude multiple sclerosis given history of such. No recent infarct. No mass effect or midline shift. No hydrocephalus. No abnormal enhancing lesions postcontrast. Rio Chavez MD Head CT 04/29/17 0729 Signed Impressions: Service Date/Time: April 07:49 - CONCLUSION: 1. No acute intracranial abnormality. Branden Linares MD Objective Remarks GENERAL: Thin cachectic appearing middle aged male patient in NAD. SKIN: Warm and dry. No rash. HEENT: Normocephalic. Atraumatic.Pupils equal and round. Mucous membranes pink and moist. CARDIOVASCULAR: Regular rate and rhythm. S1, S2 noted. No murmur appreciated. RESPIRATORY: No accessory muscle use. Clear to auscultation. Breath sounds equal bilaterally. GASTROINTESTINAL: Abdomen soft, non-tender, nondistended. Normoactive bowel sounds x4. MUSCULOSKELETAL: No obvious deformities. Extremities without clubbing, cyanosis , or edema. NEUROLOGICAL: Awake and alert. No obvious cranial nerve deficits. Motor grossly within normal limits. Moving all extremities spontaneously. Normal speech. PSYCHIATRIC: Appropriate mood and affect; insight and judgment normal. Medications and IVs Current Medications Medications (Trade) Dose Ordered Sig/Mike Route Start Time Stop Time Status Last Admin (NS Flush) 2 ml UNSCH PRN IV FLUSH 04/29/17 10:30 (NS Flush) 2 ml BID IV FLUSH 04/29/17 21:00 05/03/17 09:00 (Tylenol) 650 mg Q4H PRN PO 04/29/17 10:30 05/03/17 00:22 (Zofran Inj) 4 mg Q6H PRN IVP 04/29/17 10:30 (Lovenox Inj) 40 mg Q24H SQ 04/29/17 11:00 05/03/17 12:00 (Narcan Inj) 0.4 mg UNSCH PRN IV PUSH 04/29/17 10:30 (Sis-Colace) 1 tab BID PO 04/29/17 21:00 05/03/17 22:24 (Milk Of Magnesia Liq) 30 ml Q12H PRN PO 04/29/17 10:30 (Senokot) 17.2 mg Q12H PRN PO 2/15/18 10:30 (Dulcolax Supp) 10 mg DAILY PRN RECTAL 04/29/17 10:30 (Lactulose Liq) 30 ml DAILY PRN PO 04/29/17 10:30 (Habitrol 7 Mg Patch.24 Hr) 1 patch Q24H T-DERMAL 04/30/17 05:00 04/30/17 05:15 A/P Assessment and Plan 51-year-old male with Altered mental status, Memory loss: with History of MS. Possible malingering? Patient is homeless. -CT head reviewed and no acute findings -Labs unremarkable -EEG normal -Evaluated by psychiatry, no immediate psych issue at present -Neurology following, appreciate assistance. No MS in cord or evidence of cord compression. Neurology cleared for d/c and has signed off. -PT recommends rehab/SNF, case management to assist with placement -ST for cognitive evaluation - dependent, partial help required per their assessment. Bacteruria -Initially started on Rocephin. Urine culture showing mixed chitra, probable contaminant. DC Rocephin. Marijuana use, Tobacco use: chronic -Advised on cessation Severe Protein Calorie Malnutrition and Cachexia: secondary to poor oral intake. BMI 16. -Add ensure to each meal DVT ppx scd /teds/lovenox Discharge Planning Discharge pending placement arrangements by case management. Brenda Garzon PA-C May 04, 2017 11:19 am
[2017-05-04 12:18] LABS: METHYLMALONIC ACID 0.19 nmol/mL (<=0.40)
[2017-05-04 21:36] VITALS: BP 103/64; PULSE 78; RESP 18; TEMP 98.1; O2SAT 97
[2017-05-05 00:02] VITALS: BP 105/66; PULSE 84; RESP 18; TEMP 98; O2SAT 94
[2017-05-05 04:04] VITALS: BP 107/70; PULSE 87; RESP 18; TEMP 97.8; O2SAT 97
[2017-05-05] MEDS: NICOTINE 7 MG/24 HR PATCH T-DERMAL SCH (04:21)
[2017-05-05 08:15] VITALS: BP 107/72; PULSE 80; RESP 18; TEMP 97.4; O2SAT 97
[2017-05-05] MEDS: SODIUM CHLORIDE 0.9% FLUSH 10 ML FLUSH IV FLUSH SCH ×3 (09:00→20:26)
--- NOTE | 2017-05-05 09:55 | HHI.PR ---
Subjective Remarks Follow up for weakness, pending placement. The patient reports feeling better again today. Still feels weak and does not think he could take care of himself on his own. He states he is eating well. He has no acute medical complaints at this time. Objective Vitals Vital Signs Date Time Temp Pulse Resp B/P (MAP) Pulse Ox O2 Delivery O2 Flow Rate FiO2 05/05/17 08:15 97.4 80 18 107/72 (84) 97 05/05/17 04:04 97.8 87 18 107/70 (82) 97 05/05/17 00:02 98.0 84 18 105/66 (79) 94 05/04/17 21:36 98.1 78 18 103/64 (77) 97 05/04/17 11:11 98.1 83 16 112/64 (80) 98 I/O 05/04/17 05/04/17 05/04/17 05/05/17 05/05/17 05/05/17 07:00 15:00 23:00 07:00 15:00 23:00 # Voids 3 Imaging Last Impressions Entire Spine MRI 04/30/17 0728 Signed Impressions: Service Date/Time: Sunday, April 30, 2017 08:23 - CONCLUSION: 1. Multilevel degenerative spondylosis of the cervical spine with resultant multilevel moderate central canal stenosis. This is most prominent at C4-7. 2. No mass, abnormal enhancement or significant cord edema. 3. Degenerative spondylosis of the lower lumbar spine at L5-S1 without significant central canal or neural foraminal narrowing. Branden Linares MD Carotid Artery Ultrasound 04/30/17 0000 Signed Impressions: Service Date/Time: Sunday, April 30, 2017 09:05 - CONCLUSION: Negative for hemodynamically significant stenosis.. Gaston Hinojosa MD FACR Brain MRI 04/29/17 1356 Signed Impressions: Service Date/Time: April 18:26 - CONCLUSION: 1. There are mild signal abnormalities in the periventricular white matter in a pattern usually seen with chronic ischemic demyelinization. Cannot exclude multiple sclerosis given history of such. No recent infarct. No mass effect or midline shift. No hydrocephalus. No abnormal enhancing lesions postcontrast. Rio Chavez MD Head CT 04/29/17 0729 Signed Impressions: Service Date/Time: April 07:49 - CONCLUSION: 1. No acute intracranial abnormality. Branden Linares MD Objective Remarks GENERAL: Thin cachectic appearing middle aged male patient in NAD. SKIN: Warm and dry. No rash. HEENT: Normocephalic. Atraumatic.Pupils equal and round. Mucous membranes pink and moist. CARDIOVASCULAR: Regular rate and rhythm. S1, S2 noted. No murmur appreciated. RESPIRATORY: No accessory muscle use. Clear to auscultation. Breath sounds equal bilaterally. GASTROINTESTINAL: Abdomen soft, non-tender, nondistended. Normoactive bowel sounds x4. MUSCULOSKELETAL: No obvious deformities. Extremities without clubbing, cyanosis , or edema. NEUROLOGICAL: Awake and alert. No obvious cranial nerve deficits. Motor grossly within normal limits. Moving all extremities spontaneously. Normal speech. PSYCHIATRIC: Appropriate mood and affect; insight and judgment normal. Medications and IVs Current Medications Medications (Trade) Dose Ordered Sig/Mike Route Start Time Stop Time Status Last Admin (NS Flush) 2 ml UNSCH PRN IV FLUSH 04/29/17 10:30 (NS Flush) 2 ml BID IV FLUSH 04/29/17 21:00 05/03/17 09:00 (Tylenol) 650 mg Q4H PRN PO 04/29/17 10:30 05/03/17 00:22 (Zofran Inj) 4 mg Q6H PRN IVP 04/29/17 10:30 (Lovenox Inj) 40 mg Q24H SQ 04/29/17 11:00 05/05/17 11:18 (Narcan Inj) 0.4 mg UNSCH PRN IV PUSH 04/29/17 10:30 (Sis-Colace) 1 tab BID PO 04/29/17 21:00 05/05/17 11:17 (Milk Of Magnesia Liq) 30 ml Q12H PRN PO 04/29/17 10:30 (Senokot) 17.2 mg Q12H PRN PO 04/29/17 10:30 (Dulcolax Supp) 10 mg DAILY PRN RECTAL 04/29/17 10:30 (Lactulose Liq) 30 ml DAILY PRN PO 04/29/17 10:30 (Habitrol 7 Mg Patch.24 Hr) 1 patch Q24H T-DERMAL 04/30/17 05:00 04/30/17 05:15 A/P Assessment and Plan 51-year-old male with Altered mental status, Memory loss: with History of MS. Possible malingering? Patient is homeless. -CT head reviewed and no acute findings -Labs unremarkable -EEG normal -Evaluated by psychiatry, no immediate psych issue at present -Neurology following, appreciate assistance. No MS in cord or evidence of cord compression. Neurology cleared for d/c and has signed off. -PT recommends rehab/SNF, case management to assist with placement -ST for cognitive evaluation - dependent, partial help required per their assessment. Bacteruria -Initially started on Rocephin. Urine culture showing mixed chitra, probable contaminant. DC Rocephin. Marijuana use, Tobacco use: chronic -Advised on cessation Severe Protein Calorie Malnutrition and Cachexia: secondary to poor oral intake. BMI 16. -Add ensure to each meal DVT ppx scd /teds/lovenox Discharge Planning Discharge pending placement arrangements by case management. Discussed with RN and case management. Brenda Garzon PA-C May 05, 2017 9:55 am
[2017-05-05] MEDS: DOCUSATE SODIUM 50 MG/SENNA 8.6 MG TAB PO SCH ×2 (11:17→20:26)
[2017-05-05] MEDS: ENOXAPARIN SODIUM 40 MG/0.4 ML SYRINGE SQ SCH (11:18)
[2017-05-05 11:45] VITALS: BP 100/61; PULSE 90; RESP 18; TEMP 98.1; O2SAT 98
[2017-05-05 16:15] VITALS: BP 113/61; PULSE 72; RESP 18; TEMP 98; O2SAT 99
[2017-05-05 20:58] VITALS: BP 102/59; PULSE 78; RESP 18; TEMP 97.8; O2SAT 98
[2017-05-06] VITALS (7 sets, daily range): BP systolic 95–120; BP diastolic 52–73; PULSE 68–102; RESP 16–20; TEMP 97.7–98.2; O2SAT 96–98
[2017-05-06] MEDS: NICOTINE 7 MG/24 HR PATCH T-DERMAL SCH (05:00)
[2017-05-06] MEDS: SODIUM CHLORIDE 0.9% FLUSH 10 ML FLUSH IV FLUSH SCH ×2 (09:00→20:27)
[2017-05-06] MEDS: DOCUSATE SODIUM 50 MG/SENNA 8.6 MG TAB PO SCH ×2 (09:00→20:27)
--- NOTE | 2017-05-06 10:17 | HHI.PR ---
Subjective Remarks Follow up for weakness, pending placement. The patient has no new medical complaints today. States weakness is the same compared to yesterday. Denies any pain. Tolerating oral intake. Vital signs reviewed and stable. Objective Vitals Vital Signs Date Time Temp Pulse Resp B/P (MAP) Pulse Ox O2 Delivery O2 Flow Rate FiO2 05/06/17 08:19 98.1 86 18 95/52 (66) 98 05/06/17 03:06 97.8 68 18 101/58 (72) 97 05/06/17 00:50 97.9 75 18 106/61 (76) 97 05/05/17 20:58 97.8 78 18 102/59 (73) 98 05/05/17 16:15 98.0 72 18 113/61 (78) 99 05/05/17 11:45 98.1 90 18 100/61 (74) 98 Imaging Last Impressions Entire Spine MRI 04/30/17 0728 Signed Impressions: Service Date/Time: Sunday, April 30, 2017 08:23 - CONCLUSION: 1. Multilevel degenerative spondylosis of the cervical spine with resultant multilevel moderate central canal stenosis. This is most prominent at C4-7. 2. No mass, abnormal enhancement or significant cord edema. 3. Degenerative spondylosis of the lower lumbar spine at L5-S1 without significant central canal or neural foraminal narrowing. Branden Linares MD Carotid Artery Ultrasound 04/30/17 0000 Signed Impressions: Service Date/Time: Sunday, April 30, 2017 09:05 - CONCLUSION: Negative for hemodynamically significant stenosis.. Gaston Hinojosa MD FACR Brain MRI 04/29/17 1356 Signed Impressions: Service Date/Time: April 18:26 - CONCLUSION: 1. There are mild signal abnormalities in the periventricular white matter in a pattern usually seen with chronic ischemic demyelinization. Cannot exclude multiple sclerosis given history of such. No recent infarct. No mass effect or midline shift. No hydrocephalus. No abnormal enhancing lesions postcontrast. Rio Chavez MD Head CT 04/29/17 0729 Signed Impressions: Service Date/Time: April 07:49 - CONCLUSION: 1. No acute intracranial abnormality. Branden Linares MD Objective Remarks GENERAL: Thin cachectic appearing middle aged male patient in NAD. SKIN: Warm and dry. No rash. HEENT: Normocephalic. Atraumatic.Pupils equal and round. Mucous membranes pink and moist. CARDIOVASCULAR: Regular rate and rhythm. S1, S2 noted. No murmur appreciated. RESPIRATORY: No accessory muscle use. Clear to auscultation. Breath sounds equal bilaterally. GASTROINTESTINAL: Abdomen soft, non-tender, nondistended. Normoactive bowel sounds x4. MUSCULOSKELETAL: No obvious deformities. Extremities without clubbing, cyanosis , or edema. NEUROLOGICAL: Awake and alert. No obvious cranial nerve deficits. Motor grossly within normal limits. Moving all extremities spontaneously. Normal speech. PSYCHIATRIC: Appropriate mood and affect; insight and judgment normal. Medications and IVs Current Medications Medications (Trade) Dose Ordered Sig/Mike Route Start Time Stop Time Status Last Admin (NS Flush) 2 ml UNSCH PRN IV FLUSH 04/29/17 10:30 (NS Flush) 2 ml BID IV FLUSH 04/29/17 21:00 05/03/17 09:00 (Tylenol) 650 mg Q4H PRN PO 04/29/17 10:30 05/03/17 00:22 (Zofran Inj) 4 mg Q6H PRN IVP 04/29/17 10:30 (Lovenox Inj) 40 mg Q24H SQ 04/29/17 11:00 05/05/17 11:18 (Narcan Inj) 0.4 mg UNSCH PRN IV PUSH 04/29/17 10:30 (Sis-Colace) 1 tab BID PO 04/29/17 21:00 05/05/17 11:17 (Milk Of Magnesia Liq) 30 ml Q12H PRN PO 04/29/17 10:30 (Senokot) 17.2 mg Q12H PRN PO 04/29/17 10:30 (Dulcolax Supp) 10 mg DAILY PRN RECTAL 04/29/17 10:30 (Lactulose Liq) 30 ml DAILY PRN PO 04/29/17 10:30 (Habitrol 7 Mg Patch.24 Hr) 1 patch Q24H T-DERMAL 04/30/17 05:00 04/30/17 05:15 A/P Assessment and Plan 51-year-old male with Altered mental status, Memory loss: with History of MS. Possible malingering? Patient is homeless. -CT head reviewed and no acute findings -Labs unremarkable -EEG normal -Evaluated by psychiatry, no immediate psych issue at present -Neurology following, appreciate assistance. No MS in cord or evidence of cord compression. Neurology cleared for d/c and has signed off. -PT recommends rehab/SNF, case management to assist with placement -ST for cognitive evaluation - dependent, partial help required per their assessment. Bacteruria -Initially started on Rocephin. Urine culture showing mixed chitra, probable contaminant. DC Rocephin. Marijuana use, Tobacco use: chronic -Advised on cessation Severe Protein Calorie Malnutrition and Cachexia: secondary to poor oral intake. BMI 16. -Added ensure to each meal DVT Prophylaxis: scd /teds/lovenox Discharge Planning Discharge pending placement arrangements by case management. Discussed with RN and case management. Brenda Garzon PA-C May 06, 2017 10:17 am
[2017-05-06] MEDS: ENOXAPARIN SODIUM 40 MG/0.4 ML SYRINGE SQ SCH (11:00)
[2017-05-07 03:45] VITALS: BP 110/68; PULSE 69; RESP 16; TEMP 97.9; O2SAT 96
[2017-05-07] MEDS: NICOTINE 7 MG/24 HR PATCH T-DERMAL SCH (05:00)
[2017-05-07 07:46] VITALS: BP 102/61; PULSE 80; RESP 18; TEMP 98; O2SAT 96
[2017-05-07] MEDS: SODIUM CHLORIDE 0.9% FLUSH 10 ML FLUSH IV FLUSH SCH ×2 (08:47→20:11)
[2017-05-07] MEDS: DOCUSATE SODIUM 50 MG/SENNA 8.6 MG TAB PO SCH ×2 (08:47→20:11)
[2017-05-07] MEDS: ENOXAPARIN SODIUM 40 MG/0.4 ML SYRINGE SQ SCH (11:00)
[2017-05-07 12:01] VITALS: BP 101/63; PULSE 86; RESP 18; TEMP 98; O2SAT 96
--- NOTE | 2017-05-07 13:30 | HHI.PR ---
Subjective Remarks Follow up for weakness, placement pending. The patient again has no specific medical complaints today. He wants to be discharged muriel. He is eating well. Vital signs reviewed and stable. No acute events overnight. Objective Vitals Vital Signs Date Time Temp Pulse Resp B/P (MAP) Pulse Ox O2 Delivery O2 Flow Rate FiO2 05/07/17 12:01 98.0 86 18 101/63 (76) 96 05/07/17 07:46 98.0 80 18 102/61 (75) 96 05/07/17 03:45 97.9 69 16 110/68 (82) 96 05/06/17 23:36 97.7 75 16 120/73 (89) 98 05/06/17 19:52 98.1 97 20 105/67 (80) 97 05/06/17 15:56 98.2 87 18 112/64 (80) 97 Imaging Last Impressions Entire Spine MRI 04/30/17 0728 Signed Impressions: Service Date/Time: Sunday, April 30, 2017 08:23 - CONCLUSION: 1. Multilevel degenerative spondylosis of the cervical spine with resultant multilevel moderate central canal stenosis. This is most prominent at C4-7. 2. No mass, abnormal enhancement or significant cord edema. 3. Degenerative spondylosis of the lower lumbar spine at L5-S1 without significant central canal or neural foraminal narrowing. Branden Linares MD Carotid Artery Ultrasound 04/30/17 0000 Signed Impressions: Service Date/Time: Sunday, April 30, 2017 09:05 - CONCLUSION: Negative for hemodynamically significant stenosis.. Gaston Hinojosa MD FACR Brain MRI 04/29/17 1356 Signed Impressions: Service Date/Time: April 18:26 - CONCLUSION: 1. There are mild signal abnormalities in the periventricular white matter in a pattern usually seen with chronic ischemic demyelinization. Cannot exclude multiple sclerosis given history of such. No recent infarct. No mass effect or midline shift. No hydrocephalus. No abnormal enhancing lesions postcontrast. Rio Chavez MD Head CT 04/29/17 0729 Signed Impressions: Service Date/Time: April 07:49 - CONCLUSION: 1. No acute intracranial abnormality. Branden Linares MD Objective Remarks GENERAL: Thin cachectic appearing middle aged male patient in NAD. SKIN: Warm and dry. HEENT: Normocephalic. Atraumatic.Pupils equal and round. Mucous membranes pink and moist. CARDIOVASCULAR: Regular rate and rhythm. No murmur appreciated. RESPIRATORY: No accessory muscle use. Clear to auscultation. Breath sounds equal bilaterally. GASTROINTESTINAL: Abdomen soft, non-tender, nondistended. MUSCULOSKELETAL: No obvious deformities. Extremities without clubbing, cyanosis , or edema. NEUROLOGICAL: Awake and alert. No obvious cranial nerve deficits. Motor grossly within normal limits. Moving all extremities spontaneously. Normal speech. PSYCHIATRIC: Appropriate mood and affect; insight and judgment normal. Medications and IVs Current Medications Medications (Trade) Dose Ordered Sig/Mike Route Start Time Stop Time Status Last Admin (NS Flush) 2 ml UNSCH PRN IV FLUSH 04/29/17 10:30 (NS Flush) 2 ml BID IV FLUSH 04/29/17 21:00 05/06/17 20:27 (Tylenol) 650 mg Q4H PRN PO 04/29/17 10:30 05/03/17 00:22 (Zofran Inj) 4 mg Q6H PRN IVP 04/29/17 10:30 (Lovenox Inj) 40 mg Q24H SQ 04/29/17 11:00 05/05/17 11:18 (Narcan Inj) 0.4 mg UNSCH PRN IV PUSH 04/29/17 10:30 (Sis-Colace) 1 tab BID PO 04/29/17 21:00 05/05/17 11:17 (Milk Of Magnesia Liq) 30 ml Q12H PRN PO 04/29/17 10:30 (Senokot) 17.2 mg Q12H PRN PO 04/29/17 10:30 (Dulcolax Supp) 10 mg DAILY PRN RECTAL 04/29/17 10:30 (Lactulose Liq) 30 ml DAILY PRN PO 04/29/17 10:30 (Habitrol 7 Mg Patch.24 Hr) 1 patch Q24H T-DERMAL 04/30/17 05:00 04/30/17 05:15 A/P Assessment and Plan 51-year-old male with Altered mental status, Memory loss: with History of MS. Possible malingering? Patient is homeless. -CT head reviewed and no acute findings -Labs unremarkable -EEG normal -Evaluated by psychiatry, no immediate psych issue at present -Neurology following, appreciate assistance. No MS in cord or evidence of cord compression. Neurology cleared for d/c and has signed off. -PT recommends rehab/SNF, case management to assist with placement -ST for cognitive evaluation - dependent, partial help required per their assessment. Bacteruria -Initially started on Rocephin. Urine culture showing mixed chitra, probable contaminant. DC Rocephin. Marijuana use, Tobacco use: chronic -Advised on cessation Severe Protein Calorie Malnutrition and Cachexia: secondary to poor oral intake. BMI 16. -Added ensure to each meal DVT Prophylaxis: scd /teds/lovenox Discharge Planning Discharge pending placement arrangements by case management. Discussed with RN and case management. Brenda Garzon PA-C May 07, 2017 1:30 pm
[2017-05-07 17:13] VITALS: BP 115/82; PULSE 93; RESP 18; TEMP 98.6; O2SAT 96
[2017-05-07 20:45] VITALS: BP 110/78; PULSE 91; RESP 17; TEMP 98.2; O2SAT 97
[2017-05-07 23:50] VITALS: BP 108/64; PULSE 90; RESP 17; TEMP 98.4; O2SAT 97
[2017-05-08 04:43] VITALS: BP 106/80; PULSE 84; RESP 17; TEMP 97.2; O2SAT 96
[2017-05-08] MEDS: NICOTINE 7 MG/24 HR PATCH T-DERMAL SCH (05:00)
[2017-05-08 08:00] VITALS: BP 110/61; PULSE 91; RESP 18; TEMP 97; O2SAT 96
[2017-05-08] MEDS: SODIUM CHLORIDE 0.9% FLUSH 10 ML FLUSH IV FLUSH SCH ×2 (09:00→20:23)
[2017-05-08] MEDS: DOCUSATE SODIUM 50 MG/SENNA 8.6 MG TAB PO SCH ×2 (09:19→20:23)
[2017-05-08] MEDS: ENOXAPARIN SODIUM 40 MG/0.4 ML SYRINGE SQ SCH (11:00)
[2017-05-08 12:00] VITALS: BP 104/59; PULSE 84; RESP 18; TEMP 96.7; O2SAT 98
--- NOTE | 2017-05-08 13:08 | HHI.PR ---
Subjective Remarks Follow up for weakness, placement pending. Patient seen sitting upright in bedside chair with friends at bedside. He has no acute complaints. He is hoping for discharge soon. Tolerating oral intake. Having normal BMs. Objective Vitals Vital Signs Date Time Temp Pulse Resp B/P (MAP) Pulse Ox O2 Delivery O2 Flow Rate FiO2 05/08/17 12:00 96.7 84 18 104/59 (74) 98 05/08/17 08:00 97.0 91 18 110/61 (77) 96 05/08/17 04:43 97.2 84 17 106/80 (89) 96 05/07/17 23:50 98.4 90 17 108/64 (79) 97 05/07/17 20:45 98.2 91 17 110/78 (89) 97 05/07/17 17:13 98.6 93 18 115/82 (93) 96 Imaging Last Impressions Entire Spine MRI 04/30/17 0728 Signed Impressions: Service Date/Time: Sunday, April 30, 2017 08:23 - CONCLUSION: 1. Multilevel degenerative spondylosis of the cervical spine with resultant multilevel moderate central canal stenosis. This is most prominent at C4-7. 2. No mass, abnormal enhancement or significant cord edema. 3. Degenerative spondylosis of the lower lumbar spine at L5-S1 without significant central canal or neural foraminal narrowing. Branden Linares MD Carotid Artery Ultrasound 04/30/17 0000 Signed Impressions: Service Date/Time: Sunday, April 30, 2017 09:05 - CONCLUSION: Negative for hemodynamically significant stenosis.. Gaston Hinojosa MD FACR Brain MRI 04/29/17 1356 Signed Impressions: Service Date/Time: April 18:26 - CONCLUSION: 1. There are mild signal abnormalities in the periventricular white matter in a pattern usually seen with chronic ischemic demyelinization. Cannot exclude multiple sclerosis given history of such. No recent infarct. No mass effect or midline shift. No hydrocephalus. No abnormal enhancing lesions postcontrast. Rio Chavez MD Head CT 04/29/17 0729 Signed Impressions: Service Date/Time: April 07:49 - CONCLUSION: 1. No acute intracranial abnormality. Branden Linares MD Objective Remarks GENERAL: Thin cachectic appearing middle aged male patient in [place]. SKIN: Warm and dry. HEENT: Normocephalic. Atraumatic.Pupils equal and round. Mucous membranes pink and moist. CARDIOVASCULAR: Regular rate and rhythm. No murmur appreciated. RESPIRATORY: No accessory muscle use. Clear to auscultation. Breath sounds equal bilaterally. GASTROINTESTINAL: Abdomen soft, non-tender, nondistended. MUSCULOSKELETAL: No obvious deformities. Extremities without clubbing, cyanosis , or edema. NEUROLOGICAL: Awake and alert. No obvious cranial nerve deficits. Motor grossly within normal limits. Moving all extremities spontaneously. Normal speech. PSYCHIATRIC: Appropriate mood and affect; insight and judgment normal. Medications and IVs Current Medications Medications (Trade) Dose Ordered Sig/Mike Route Start Time Stop Time Status Last Admin (NS Flush) 2 ml UNSCH PRN IV FLUSH 04/29/17 10:30 (NS Flush) 2 ml BID IV FLUSH 04/29/17 21:00 05/06/17 20:27 (Tylenol) 650 mg Q4H PRN PO 04/29/17 10:30 05/03/17 00:22 (Zofran Inj) 4 mg Q6H PRN IVP 04/29/17 10:30 (Lovenox Inj) 40 mg Q24H SQ 04/29/17 11:00 05/05/17 11:18 (Narcan Inj) 0.4 mg UNSCH PRN IV PUSH 04/29/17 10:30 (Sis-Colace) 1 tab BID PO 04/29/17 21:00 05/08/17 09:19 (Milk Of Magnesia Liq) 30 ml Q12H PRN PO 04/29/17 10:30 (Senokot) 17.2 mg Q12H PRN PO 04/29/17 10:30 (Dulcolax Supp) 10 mg DAILY PRN RECTAL 04/29/17 10:30 (Lactulose Liq) 30 ml DAILY PRN PO 04/29/17 10:30 (Habitrol 7 Mg Patch.24 Hr) 1 patch Q24H T-DERMAL 04/30/17 05:00 04/30/17 05:15 A/P Assessment and Plan 51-year-old male with Altered mental status, Memory loss: with History of MS. Possible malingering? Patient is homeless. -CT head reviewed and no acute findings -Labs unremarkable -EEG normal -Evaluated by psychiatry, no immediate psych issue at present -Neurology following, appreciate assistance. No MS in cord or evidence of cord compression. Neurology cleared for d/c and has signed off. -PT recommends rehab/SNF, case management to assist with placement -ST for cognitive evaluation - dependent, partial help required per their assessment. Bacteruria -Initially started on Rocephin. Urine culture showing mixed chitra, probable contaminant. DC Rocephin. Marijuana use, Tobacco use: chronic -Advised on cessation Severe Protein Calorie Malnutrition and Cachexia: secondary to poor oral intake. BMI 16. -Added ensure to each meal DVT Prophylaxis: scd /teds/lovenox Discharge Planning Discharge pending placement arrangements by case management. Discussed with RN and case management. Brenda Garzon PA-C May 08, 2017 1:08 pm
[2017-05-08 16:00] VITALS: BP 96/52; PULSE 90; RESP 18; TEMP 96.6; O2SAT 97
[2017-05-08 20:06] VITALS: BP 105/59; PULSE 95; RESP 18; TEMP 98.2; O2SAT 97
[2017-05-09 03:41] VITALS: BP 110/60; PULSE 76; RESP 18; TEMP 97.8; O2SAT 97
[2017-05-09] MEDS: NICOTINE 7 MG/24 HR PATCH T-DERMAL SCH (04:33)
[2017-05-09 07:29] VITALS: BP 114/62; PULSE 95; RESP 18; TEMP 96.1; O2SAT 98
[2017-05-09] MEDS: SODIUM CHLORIDE 0.9% FLUSH 10 ML FLUSH IV FLUSH SCH ×2 (08:22→21:00)
[2017-05-09] MEDS: DOCUSATE SODIUM 50 MG/SENNA 8.6 MG TAB PO SCH ×2 (08:22→22:38)
--- NOTE | 2017-05-09 09:00 | HHI.PR ---
Subjective Remarks Placement pending. The patient has no acute medical complaints. Tolerating oral intake. He wants to be discharged as soon as possible. He states that he understands he needs help and cannot live on the streets. Objective Vitals Vital Signs Date Time Temp Pulse Resp B/P (MAP) Pulse Ox O2 Delivery O2 Flow Rate FiO2 05/09/17 07:29 96.1 95 18 114/62 (79) 98 05/09/17 03:41 97.8 76 18 110/60 (77) 97 05/08/17 20:06 98.2 95 18 105/59 (74) 97 05/08/17 16:00 96.6 90 18 96/52 (67) 97 05/08/17 12:00 96.7 84 18 104/59 (74) 98 I/O 05/08/17 05/08/17 05/08/17 05/09/17 05/09/17 05/09/17 07:00 15:00 23:00 07:00 15:00 23:00 Intake Total 160 ml Balance 160 ml Intake Oral 160 ml # Voids 4 Imaging Last Impressions Entire Spine MRI 04/30/17 0728 Signed Impressions: Service Date/Time: Sunday, April 30, 2017 08:23 - CONCLUSION: 1. Multilevel degenerative spondylosis of the cervical spine with resultant multilevel moderate central canal stenosis. This is most prominent at C4-7. 2. No mass, abnormal enhancement or significant cord edema. 3. Degenerative spondylosis of the lower lumbar spine at L5-S1 without significant central canal or neural foraminal narrowing. Branden Linares MD Carotid Artery Ultrasound 04/30/17 0000 Signed Impressions: Service Date/Time: Sunday, April 30, 2017 09:05 - CONCLUSION: Negative for hemodynamically significant stenosis.. Gaston Hinojosa MD FACR Brain MRI 04/29/17 1356 Signed Impressions: Service Date/Time: April 18:26 - CONCLUSION: 1. There are mild signal abnormalities in the periventricular white matter in a pattern usually seen with chronic ischemic demyelinization. Cannot exclude multiple sclerosis given history of such. No recent infarct. No mass effect or midline shift. No hydrocephalus. No abnormal enhancing lesions postcontrast. Rio Chavez MD Head CT 04/29/17 0760 Signed Impressions: Service Date/Time: April 07:49 - CONCLUSION: 1. No acute intracranial abnormality. Branden Linares MD Objective Remarks GENERAL: Thin cachectic appearing middle aged male patient in [facility]. SKIN: Warm and dry. HEENT: Normocephalic. Atraumatic.Pupils equal and round. Mucous membranes pink and moist. CARDIOVASCULAR: Regular rate and rhythm. No murmur appreciated. RESPIRATORY: No accessory muscle use. Clear to auscultation. Breath sounds equal bilaterally. GASTROINTESTINAL: Abdomen soft, non-tender, nondistended. MUSCULOSKELETAL: No obvious deformities. Extremities without clubbing, cyanosis , or edema. NEUROLOGICAL: Awake and alert. No obvious cranial nerve deficits. Motor grossly within normal limits. Moving all extremities spontaneously. Normal speech. PSYCHIATRIC: Appropriate mood and affect; insight and judgment normal. Medications and IVs Current Medications Medications (Trade) Dose Ordered Sig/Mike Route Start Time Stop Time Status Last Admin (NS Flush) 2 ml UNSCH PRN IV FLUSH 04/29/17 10:30 (NS Flush) 2 ml BID IV FLUSH 04/29/17 21:00 05/08/17 20:23 (Tylenol) 650 mg Q4H PRN PO 04/29/17 10:30 05/03/17 00:22 (Zofran Inj) 4 mg Q6H PRN IVP 04/29/17 10:30 (Lovenox Inj) 40 mg Q24H SQ 04/29/17 11:00 05/05/17 11:18 (Narcan Inj) 0.4 mg UNSCH PRN IV PUSH 04/29/17 10:30 (Sis-Colace) 1 tab BID PO 04/29/17 21:00 05/08/17 20:23 (Milk Of Magnesia Liq) 30 ml Q12H PRN PO 04/29/17 10:30 05/08/17 17:25 (Senokot) 17.2 mg Q12H PRN PO 04/29/17 10:30 (Dulcolax Supp) 10 mg DAILY PRN RECTAL 04/29/17 10:30 (Lactulose Liq) 30 ml DAILY PRN PO 04/29/17 10:30 (Habitrol 7 Mg Patch.24 Hr) 1 patch Q24H T-DERMAL 04/30/17 05:00 04/30/17 05:15 A/P Assessment and Plan 51-year-old male with Altered mental status, Memory loss: with History of MS. Possible malingering? Patient is homeless. -CT head reviewed and no acute findings -Labs unremarkable -EEG normal -Evaluated by psychiatry, no immediate psych issue at present -Neurology following, appreciate assistance. No MS in cord or evidence of cord compression. Neurology cleared for d/c and has signed off. -PT recommends rehab/SNF, case management to assist with placement -ST for cognitive evaluation - dependent, partial help required per their assessment. Bacteruria -Initially started on Rocephin. Urine culture showing mixed chitra, probable contaminant. DC Rocephin. Marijuana use, Tobacco use: chronic -Advised on cessation Severe Protein Calorie Malnutrition and Cachexia: secondary to poor oral intake. BMI 16. -Added ensure to each meal DVT Prophylaxis: scd /teds/lovenox Discharge Planning Discharge pending placement arrangements by case management. Discussed with RN and case management. Brenda Garzon PA-C May 09, 2017 9:00 am
[2017-05-09] MEDS: ENOXAPARIN SODIUM 40 MG/0.4 ML SYRINGE SQ SCH (11:00)
[2017-05-09 11:14] VITALS: BP 108/67; PULSE 80; RESP 18; TEMP 98; O2SAT 97
[2017-05-09 19:36] VITALS: BP 122/64; PULSE 79; RESP 18; O2SAT 97
[2017-05-09 23:20] VITALS: BP 100/62; PULSE 76; RESP 18; TEMP 97.8; O2SAT 97
[2017-05-10 03:12] VITALS: BP 108/65; PULSE 69; RESP 18; TEMP 98; O2SAT 96
[2017-05-10] MEDS: NICOTINE 7 MG/24 HR PATCH T-DERMAL SCH (05:00)
--- NOTE | 2017-05-10 05:23 | RADRPT ---
EXAM DATE/TIME: 05/10/2017 04:08 [facility] COMPARISON: No previous studies available for comparison. INDICATIONS : Pain in elbow patient states fall. MEDICAL HISTORY : None. SURGICAL HISTORY : None. ENCOUNTER: Initial ACUITY: 1 day PAIN SCORE: 3/10 LOCATION: Right hip FINDINGS: Two view examination of the right elbow demonstrates no soft tissue swelling, joint effusion, fractur e or dislocation. Bony mineralization is normal. CONCLUSION: 1. No acute fracture or dislocation. Branden Linares MD on May 10, 2017 at 5:22 Board Certified Radiologist. This report was verified electronically.
--- NOTE | 2017-05-10 05:24 | RADRPT ---
EXAM DATE/TIME: 05/10/2017 04:12 [facility] COMPARISON: No previous studies available for comparison. INDICATIONS : Pain in hhip patient states fall. MEDICAL HISTORY : None. SURGICAL HISTORY : None. ENCOUNTER: Initial ACUITY: 1 day PAIN SCORE: 0/10 LOCATION: Right hip FINDINGS: Examination of the right hip was performed with AP Pelvis. The primary and secondary trabecular les hawk of the femoral neck is intact. The hip joint is of normal width without significant sclerosis or bony hypertrophy. The acetabulum is grossly intact. CONCLUSION: 1. No acute fracture or dislocation. Branden Linares MD on May 10, 2017 at 5:22 Board Certified Radiologist. This report was verified electronically.
[2017-05-10 08:23] VITALS: BP 95/64; PULSE 89; RESP 20; TEMP 98; O2SAT 97
[2017-05-10] MEDS: SODIUM CHLORIDE 0.9% FLUSH 10 ML FLUSH IV FLUSH SCH ×2 (09:00→21:00)
--- NOTE | 2017-05-10 09:34 | HHI.PR ---
Subjective Remarks Follow up for weakness, placement pending. The patient is seen sitting upright in bedside chair. He does believe his weakness is improving however feels he could not take care of himself. He is anxiously awaiting placement. He has no other medical complaints at this time. Objective Vitals Vital Signs Date Time Temp Pulse Resp B/P (MAP) Pulse Ox O2 Delivery O2 Flow Rate FiO2 05/10/17 08:23 98.0 89 20 95/64 (74) 97 05/10/17 03:12 98.0 69 18 108/65 (79) 96 05/09/17 23:20 97.8 76 18 100/62 (75) 97 05/09/17 19:36 79 18 122/64 (83) 97 05/09/17 11:14 98.0 80 18 108/67 (81) 97 I/O 05/09/17 05/09/17 05/09/17 05/10/17 05/10/17 05/10/17 07:00 15:00 23:00 07:00 15:00 23:00 Intake Total 160 ml Balance 160 ml Intake Oral 160 ml Imaging Last Impressions Hip and Pelvis X-Ray 05/10/17 0000 Signed Impressions: Service Date/Time: Wednesday, May 10, 2017 04:12 - CONCLUSION: 1. No acute fracture or dislocation. Branden Linares MD Elbow X-Ray 05/10/17 0000 Signed Impressions: Service Date/Time: Wednesday, May 10, 2017 04:08 - CONCLUSION: 1. No acute fracture or dislocation. Branden Linares MD Entire Spine MRI 04/30/17 0728 Signed Impressions: Service Date/Time: Sunday, April 30, 2017 08:23 - CONCLUSION: 1. Multilevel degenerative spondylosis of the cervical spine with resultant multilevel moderate central canal stenosis. This is most prominent at C4-7. 2. No mass, abnormal enhancement or significant cord edema. 3. Degenerative spondylosis of the lower lumbar spine at L5-S1 without significant central canal or neural foraminal narrowing. Branden Linares MD Carotid Artery Ultrasound 04/30/17 0000 Signed Impressions: Service Date/Time: Sunday, April 30, 2017 09:05 - CONCLUSION: Negative for hemodynamically significant stenosis.. Gaston Hinojosa MD FACR Brain MRI 04/29/17 1356 Signed Impressions: Service Date/Time: April 18:26 - CONCLUSION: 1. There are mild signal abnormalities in the periventricular white matter in a pattern usually seen with chronic ischemic demyelinization. Cannot exclude multiple sclerosis given history of such. No recent infarct. No mass effect or midline shift. No hydrocephalus. No abnormal enhancing lesions postcontrast. Rio Chavez MD Head CT 04/29/17 0729 Signed Impressions: Service Date/Time: April 07:49 - CONCLUSION: 1. No acute intracranial abnormality. Branden Linares MD Objective Remarks GENERAL: Thin cachectic appearing middle aged male patient in [facility]. SKIN: Warm and dry. HEENT: Normocephalic. Atraumatic.Pupils equal and round. Mucous membranes pink and moist. CARDIOVASCULAR: Regular rate and rhythm. No murmur appreciated. RESPIRATORY: No accessory muscle use. Clear to auscultation. Breath sounds equal bilaterally. GASTROINTESTINAL: Abdomen soft, non-tender, nondistended. MUSCULOSKELETAL: No obvious deformities. Extremities without clubbing, cyanosis , or edema. NEUROLOGICAL: Awake and alert. No obvious cranial nerve deficits. Motor grossly within normal limits. Moving all extremities spontaneously. Normal speech. PSYCHIATRIC: Appropriate mood and affect; insight and judgment normal. Medications and IVs Current Medications Medications (Trade) Dose Ordered Sig/Mike Route Start Time Stop Time Status Last Admin (NS Flush) 2 ml UNSCH PRN IV FLUSH 04/29/17 10:30 (NS Flush) 2 ml BID IV FLUSH 04/29/17 21:00 05/08/17 20:23 (Tylenol) 650 mg Q4H PRN PO 04/29/17 10:30 05/10/17 11:08 (Zofran Inj) 4 mg Q6H PRN IVP 04/29/17 10:30 (Lovenox Inj) 40 mg Q24H SQ 04/29/17 11:00 05/05/17 11:18 (Narcan Inj) 0.4 mg UNSCH PRN IV PUSH 04/29/17 10:30 (Sis-Colace) 1 tab BID PO 04/29/17 21:00 05/10/17 10:57 (Milk Of Magnesia Liq) 30 ml Q12H PRN PO 04/29/17 10:30 05/08/17 17:25 (Senokot) 17.2 mg Q12H PRN PO 04/29/17 10:30 (Dulcolax Supp) 10 mg DAILY PRN RECTAL 04/29/17 10:30 (Lactulose Liq) 30 ml DAILY PRN PO 04/29/17 10:30 (Habitrol 7 Mg Patch.24 Hr) 1 patch Q24H T-DERMAL 04/30/17 05:00 04/30/17 05:15 A/P Assessment and Plan 51-year-old male with Altered mental status, Memory loss: with History of MS. Possible malingering? Patient is homeless. -CT head reviewed and no acute findings -Labs unremarkable -EEG normal -Evaluated by psychiatry, no immediate psych issue at present -Neurology following, appreciate assistance. No MS in cord or evidence of cord compression. Neurology cleared for d/c and has signed off. -PT recommends rehab/SNF, case management to assist with placement -ST for cognitive evaluation - dependent, partial help required per their assessment. Bacteruria -Initially started on Rocephin. Urine culture showing mixed chitra, probable contaminant. DC Rocephin. Marijuana use, Tobacco use: chronic -Advised on cessation Severe Protein Calorie Malnutrition and Cachexia: secondary to poor oral intake. BMI 16. -Added ensure to each meal DVT Prophylaxis: scd /teds/lovenox Discharge Planning Discharge pending placement arrangements by case management. Discussed with RN and case management. Brenda Garzon PA-C May 10, 2017 9:34 am
[2017-05-10] MEDS: ENOXAPARIN SODIUM 40 MG/0.4 ML SYRINGE SQ SCH (10:56)
[2017-05-10] MEDS: DOCUSATE SODIUM 50 MG/SENNA 8.6 MG TAB PO SCH ×2 (10:57→22:35)
[2017-05-10] MEDS: ACETAMINOPHEN 325 MG TAB PO PRN ×2 (11:08→22:35)
[2017-05-10 12:08] VITALS: BP 107/63; PULSE 101; RESP 20; TEMP 98.6; O2SAT 97
[2017-05-10 15:38] VITALS: BP 94/60; PULSE 92; RESP 20; TEMP 97.6; O2SAT 96
[2017-05-10 19:28] VITALS: BP 110/67; PULSE 92; RESP 20; TEMP 97.7; O2SAT 96
[2017-05-10 23:43] VITALS: BP 111/60; PULSE 72; RESP 16; TEMP 97.7; O2SAT 96
[2017-05-11 04:11] VITALS: BP 98/58; PULSE 68; RESP 16; TEMP 97.7; O2SAT 98
[2017-05-11] MEDS: NICOTINE 7 MG/24 HR PATCH T-DERMAL SCH (04:40)
[2017-05-11] MEDS: SODIUM CHLORIDE 0.9% FLUSH 10 ML FLUSH IV FLUSH SCH ×2 (07:39→21:00)
[2017-05-11 08:37] VITALS: BP 95/62; PULSE 81; RESP 18; TEMP 97.8; O2SAT 99
[2017-05-11] MEDS: DOCUSATE SODIUM 50 MG/SENNA 8.6 MG TAB PO SCH ×2 (08:56→21:39)
[2017-05-11] MEDS: ENOXAPARIN SODIUM 40 MG/0.4 ML SYRINGE SQ SCH (11:11)
[2017-05-11 12:36] VITALS: BP 114/67; PULSE 78; RESP 18; TEMP 98.1; O2SAT 98
[2017-05-11 16:30] VITALS: BP 102/64; PULSE 93; RESP 18; TEMP 98; O2SAT 95
--- NOTE | 2017-05-11 17:04 | HHI.PR ---
Subjective Remarks Follow-up visit generalized weakness, MS. patient seen and examined today sitting in a chair. Reports he continues to be weak and unable to remember anything. States that he can remember if he is being given $1000 right now and then within a few hours he won't know it. No chest pain, palpitations, headache , dizziness. Denies any shortness of breath or dyspnea. Denies any fevers, chills, nausea, vomiting, diarrhea. Denies dysuria. Objective Vitals Vital Signs Date Time Temp Pulse Resp B/P (MAP) Pulse Ox O2 Delivery O2 Flow Rate FiO2 05/11/17 12:36 98.1 78 18 114/67 (83) 98 05/11/17 08:37 97.8 81 18 95/62 (73) 99 05/11/17 04:11 97.7 68 16 98/58 (71) 98 05/10/17 23:43 97.7 72 16 111/60 (77) 96 05/10/17 19:28 97.7 92 20 110/67 (81) 96 I/O 05/10/17 05/10/17 05/10/17 05/11/17 05/11/17 05/11/17 07:00 15:00 23:00 07:00 15:00 23:00 Intake Total 250 ml Output Total 250 ml 600 ml Balance 0 ml -600 ml Intake Oral 250 ml Output Urine Total 250 ml 600 ml # Voids 2 Imaging Last Impressions Hip and Pelvis X-Ray 05/10/17 0000 Signed Impressions: Service Date/Time: Wednesday, May 10, 2017 04:12 - CONCLUSION: 1. No acute fracture or dislocation. Branden Linares MD Elbow X-Ray 05/10/17 0000 Signed Impressions: Service Date/Time: Wednesday, May 10, 2017 04:08 - CONCLUSION: 1. No acute fracture or dislocation. Branden Linares MD Entire Spine MRI 04/30/17 0728 Signed Impressions: Service Date/Time: Sunday, April 30, 2017 08:23 - CONCLUSION: 1. Multilevel degenerative spondylosis of the cervical spine with resultant multilevel moderate central canal stenosis. This is most prominent at C4-7. 2. No mass, abnormal enhancement or significant cord edema. 3. Degenerative spondylosis of the lower lumbar spine at L5-S1 without significant central canal or neural foraminal narrowing. Branden Linares MD Carotid Artery Ultrasound 04/30/17 0000 Signed Impressions: Service Date/Time: Sunday, April 30, 2017 09:05 - CONCLUSION: Negative for hemodynamically significant stenosis.. Gaston Hinojosa MD [facility] Brain MRI 04/29/17 1356 Signed Impressions: Service Date/Time: April 18:26 - CONCLUSION: 1. There are mild signal abnormalities in the periventricular white matter in a pattern usually seen with chronic ischemic demyelinization. Cannot exclude multiple sclerosis given history of such. No recent infarct. No mass effect or midline shift. No hydrocephalus. No abnormal enhancing lesions postcontrast. Rio Chavez MD Head CT 04/29/17 0729 Signed Impressions: Service Date/Time: April 07:49 - CONCLUSION: 1. No acute intracranial abnormality. Branden Linares MD Objective Remarks GENERAL: This is a very thin-appearing, appears older than stated age, in no apparent distress. SKIN: Warm and dry. HEENT: Normocephalic. Pupils equal round and reactive. Nose without bleeding. Airway patent. NECK: Trachea midline. CARDIOVASCULAR: Regular rate and rhythm without murmurs, gallops, or rubs. RESPIRATORY: Clear to auscultation. Breath sounds equal bilaterally. No wheezes , rales, or rhonchi. GASTROINTESTINAL: Abdomen soft, non-tender, nondistended. Bowel Sounds normoactive x4. MUSCULOSKELETAL: Extremities without clubbing, cyanosis, or edema. NEUROLOGICAL: Awake and alert. Unable to move right lower extremity. Sensory grossly within normal. Normal speech. A/P Problem List: (1) Major neurocognitive disorder ICD Code: F03.90 - Unspecified dementia without behavioral disturbance Assessment and Plan 51-year-old male with Altered mental status, Memory loss: with History of MS. Possible malingering? Patient is homeless. - CT head reviewed and no acute findings - Labs unremarkable - EEG normal - Evaluated by psychiatry, no immediate psych issue at present - Neurology following, appreciate assistance. No MS in cord or evidence of cord compression. Neurology cleared for d/c and has signed off. - PT recommends rehab/SNF, case management to assist with placement - Pending [facility] Admission - ST for cognitive evaluation - dependent, partial help required per their assessment/ no ST need when DCd - PT daily Bacteruria - Initially started on Rocephin. Urine culture showing mixed chitra, probable contaminant. Rocephin discontinued. Marijuana use, Tobacco use: chronic - Counseled on cessation Severe Protein Calorie Malnutrition and Cachexia: secondary to poor oral intake. BMI 16. - Ensure to each meals - DVT Prophylaxis: scd /teds/lovenox Discharge Planning Plan to DC with SNF. CM following. Pending approval with [facility] or [facility] Clement May 11, 2017 17:04
[2017-05-11 20:35] VITALS: BP 128/64; PULSE 71; RESP 18; TEMP 97.8; O2SAT 99
[2017-05-11] MEDS: ACETAMINOPHEN 325 MG TAB PO PRN (21:45)
[2017-05-12 00:15] VITALS: BP 119/66; PULSE 76; RESP 18; TEMP 98.1; O2SAT 95
[2017-05-12 00:19] VITALS: BP 104/58; PULSE 75; RESP 18; TEMP 98.1; O2SAT 97
[2017-05-12] MEDS: NICOTINE 7 MG/24 HR PATCH T-DERMAL SCH (05:00)
[2017-05-12 05:03] VITALS: BP 104/59; PULSE 79; RESP 18; TEMP 97.9; O2SAT 96
[2017-05-12 07:59] VITALS: BP 106/59; PULSE 82; RESP 20; TEMP 98.3; O2SAT 97
[2017-05-12] MEDS: SODIUM CHLORIDE 0.9% FLUSH 10 ML FLUSH IV FLUSH SCH (08:05)
[2017-05-12] MEDS: DOCUSATE SODIUM 50 MG/SENNA 8.6 MG TAB PO SCH (08:06)
[2017-05-12] MEDS: ENOXAPARIN SODIUM 40 MG/0.4 ML SYRINGE SQ SCH ×2 (10:07→10:09)
--- NOTE | 2017-05-12 11:14 | HHI.PR ---
Subjective Remarks f/u for placement patient has no complaints. He is OOB with assistance. He was getting up to go to chair and I explained to patient that he has to ask for help first because he can fall. He stated okay then get help. I went to get nurse and when I got back to room he was in the chair. I explained to patient he should not do this because he can had a severe injury he then stated that he does not need help. Objective Vitals Vital Signs Date Time Temp Pulse Resp B/P (MAP) Pulse Ox O2 Delivery O2 Flow Rate FiO2 05/12/17 07:59 98.3 82 20 106/59 (75) 97 05/12/17 05:03 97.9 79 18 104/59 (74) 96 05/12/17 00:19 98.1 75 18 104/58 (73) 97 05/11/17 20:35 97.8 71 18 128/64 (85) 99 05/11/17 16:30 98.0 93 18 102/64 (77) 95 05/11/17 12:36 98.1 78 18 114/67 (83) 98 I/O 05/11/17 05/11/17 05/11/17 05/12/17 05/12/17 05/12/17 07:00 15:00 23:00 07:00 15:00 23:00 Output Total 200 ml 400 ml Balance -200 ml -400 ml Output Urine Total 200 ml 400 ml # Bowel Movements 1 Objective Remarks GENERAL: in NAD CARDIOVASCULAR: Regular rate and rhythm without murmurs, gallops, or rubs. RESPIRATORY: Breath sounds equal bilaterally. No accessory muscle use. GASTROINTESTINAL: Abdomen soft, non-tender, nondistended. MUSCULOSKELETAL: strength grossly intact. Medications and IVs Current Medications Sodium Chloride (NS Flush) 2 ml UNSCH PRN IV FLUSH FLUSH AFTER USING IV ACCESS ; Start 04/29/17 at 07:30; Stop 04/29/17 at 10:31; Status DC Sodium Chloride 1,000 ml @ 100 mls/hr Q10H IV Last administered on 04/30/17at 05:18; Start 04/29/17 at 10:26; Stop 04/30/17 at 16:39; Status DC Sodium Chloride (NS Flush) 2 ml UNSCH PRN IV FLUSH FLUSH AFTER USING IV ACCESS ; Start 04/29/17 at 10:30 Sodium Chloride (NS Flush) 2 ml BID IV FLUSH Last administered on 05/08/17at 20: 23; Start 04/29/17 at 21:00 Acetaminophen (Tylenol) 650 mg Q4H PRN PO TEMP > 100.4, pain Last administered on 05/11/17at 21:45; Start 04/29/17 at 10:30 Ondansetron HCl (Zofran Inj) 4 mg Q6H PRN IVP NAUSEA OR VOMITING; Start at 10:30 Enoxaparin Sodium (Lovenox Inj) 40 mg Q24H SQ Last administered on 05/11/17at 11 :11; Start 04/29/17 at 11:00 Naloxone HCl (Narcan Inj) 0.4 mg UNSCH PRN IV PUSH SEE LABEL COMMENTS; Start at 10:30 Senna/Docusate Sodium (Sis-Colace) 1 tab BID PO Last administered on at 08:06; Start 04/29/17 at 21:00 Magnesium Hydroxide (Milk Of Magnesia Liq) 30 ml Q12H PRN PO Mild constipation Last administered on 05/08/17at 17:25; Start 04/29/17 at 10:30 Sennosides (Senokot) 17.2 mg Q12H PRN PO Moderate constipation; Start 04/29/17 at 10:30 Bisacodyl (Dulcolax Supp) 10 mg DAILY PRN RECTAL SEVERE CONSITIPATION; Start at 10:30 Lactulose (Lactulose Liq) 30 ml DAILY PRN PO SEVERE CONSITIPATION; Start at 10:30 Ceftriaxone Sodium 1000 mg/ Sodium Chloride 100 ml @ 200 mls/hr Q24H IV Last administered on 04/29/17at 16:28; Start 04/29/17 at 16:00; Stop 04/30/17 at 16:37 ; Status DC Gadodiamide (Omniscan Pf Inj) 11 ml STK-MED ONCE IVCONTRAST Last administered on 04/29/17at 18:50; Start 04/29/17 at 18:50; Stop 04/29/17 at 18:51; Status DC Nicotine (Habitrol 7 Mg Patch.24 Hr) 1 patch Q24H T-DERMAL Last administered on 04/30/17at 05:15; Start 04/30/17 at 05:00 Gadodiamide (Omniscan Pf Inj) 11 ml STK-MED ONCE IV PUSH Last administered on at 09:05; Start 04/30/17 at 09:05; Stop 04/30/17 at 09:06; Status DC A/P Problem List: (1) Major neurocognitive disorder ICD Code: F03.90 - Unspecified dementia without behavioral disturbance Assessment and Plan 51-year-old male with Altered mental status, Memory loss: with History of MS. Possible malingering? Patient is homeless. - CT head reviewed and no acute findings, Labs unremarkable, EEG normal - Evaluated by psychiatry, no immediate psych issue at present - Neurology following, appreciate assistance. No MS in cord or evidence of cord compression. Neurology cleared for d/c and has signed off. - PT recommends rehab/SNF, case management to assist with placement - Pending [facility] Admission - ST for cognitive evaluation - dependent, partial help required per their assessment/ no ST need when DCd Bacteruria - Initially started on Rocephin. Urine culture showing mixed chitra, probable contaminant. Rocephin discontinued. Marijuana use, Tobacco use: chronic - Counseled on cessation Severe Protein Calorie Malnutrition and Cachexia: secondary to poor oral intake. BMI 16. - Ensure to each meals DVT Prophylaxis: scd /teds/lovenox Dalia Gill MD May 12, 2017 11:14
[2017-05-12 11:38] VITALS: BP 105/59; PULSE 89; RESP 20; TEMP 98.3; O2SAT 98
[2017-05-12] MEDS ORDERED: NICO1DIS8 T-DERMAL (12:41)
[2017-05-12] MEDS ORDERED: PERI PO (12:41)
--- NOTE | 2017-05-12 12:41 | HHI.DS ---
Discharge Summary Admission Date Apr 29, 2017 at 10:24 Admitting Diagnosis Memory Loss, Fall (1) Major neurocognitive disorder ICD Code: F03.90 - Unspecified dementia without behavioral disturbance Brief History - From Admission 51 yo male with history of MS arrives by EMS to the emergency room for further evaluation.. EMS provides a history that includes patient found sitting on the floor. The patient states he cannot remember anything including why he is here or how he got here however he does report a history of MS and inability to walk. He is a poor historian and he gets angry when asked questions. He has no pain or fever. No chest pain shortness of breath nausea or vomiting reported. The patient was seen here about 10 days ago with a similar history. The patient evidently moved here from [place] in the past month or so. He states he did this because he has MS and that warmer climate is preferable. He denies any motor deficits. No change in vision. No urinary complaints. PE at Discharge GENERAL: in NAD CARDIOVASCULAR: Regular rate and rhythm without murmurs, gallops, or rubs. RESPIRATORY: Breath sounds equal bilaterally. No accessory muscle use. GASTROINTESTINAL: Abdomen soft, non-tender, nondistended. MUSCULOSKELETAL: strength grossly intact. Pt Condition on Discharge: Stable Discharge Disposition: Discharge to SNF Discharge Instructions DIET: Follow Instructions for: As Tolerated, No Restrictions Activities you can perform: See Additionl Instruction Other Activity Instructions: Per PT recommendations Dalia Gill MD May 12, 2017 12:41
== END 2017-05-12 16:25 ==
LOC: NEPE 06:39 → NEDA 10:24 → NEPHCDU 13:40 → N05A 05-11 12:13
PROVIDERS: ADMIT Internal Medicine; ATTEND Internal Medicine
DX: G30.9 Alzheimer's disease, unspecified (principal); F01.50 Vascular dementia, unspecified severity, without behavioral disturbance, psychotic disturbance, mood disturbance, and anxiety; R41.82 Altered mental status, unspecified; E43 Unspecified severe protein-calorie malnutrition; R64 Cachexia; G35 Multiple sclerosis; M62.59 Muscle wasting and atrophy, not elsewhere classified, multiple sites; F12.90 Cannabis use, unspecified, uncomplicated; F17.210 Nicotine dependence, cigarettes, uncomplicated; R94.31 Abnormal electrocardiogram [ECG] [EKG]; R09.89 Other specified symptoms and signs involving the circulatory and respiratory systems; W19.XXXA Unspecified fall, initial encounter
CPT/HCPCS: 70450; 70553; 72156; 72158; 73070; 73502; 80048; 80053; 80307; 81001; 82607; 82746; 83921; 84207; 84425; 85025; 85652; 86038; 86592; 87086; 93005; 93880; 95819; 96125; 96361; 96365; 96372; 97110; 97116; 97162; 97530; 99285; A9579; G0378; G8987; G8988; G9168; G9169; G9170; J0696; J1650; J7030